=== PATIENT | male | born 1940 | race Caucasian/White ===

== ENCOUNTER → 2016-07-01 | Outpatient (CLI) | payer OTHER ==
[~2016-07-01] MED LIST: AGG PO; ATOR-24 PO; CEPH500C2 PO; CHN/1 PO; LOSA1TAB38 PO; MENT4GEL TOP; METF-384 PO
[2016-07-01 15:06] LABS: BASO % 0.3 %; BASO ABS # 0.02 K/uL (0-0.2); COMPLETE YES; HEMATOCRIT 49.4 % (42-52); IG% 0.3 %; LYMPH % 30.1 %; LYMPH ABS # 2.29 K/uL (1.2-3.4); MEAN CELL VOLUME 97.8 fL (80-100); MEAN CORPUSCULAR HEMOGLOBIN 33.3 pg (25-34); MEAN PLATELET VOLUME 10.9 fL (7.4-10.4); MONO % 9.6 %; NEUT % 56.7 %; PLATELET COUNT 173 K/uL (130-400); RED BLOOD COUNT 5.05 M/uL (4.7-6.1); WHITE BLOOD COUNT 7.61 K/uL (4.8-10.8)
[2016-07-01 16:23] LABS: ALT/SGPT 26 U/L (12-78); AST/SGOT 14 U/L (15-37); BLOOD UREA NITROGEN 24 mg/dl (7-18); BUN/CREATININE RATIO 14.4 (10-20); CALCIUM 9.3 mg/dl (8.5-10.1); CARBON DIOXIDE 27 mmol/L (21-32); CHLORIDE 109 mmol/L (98-107); GLUCOSE 88 mg/dl (70-99); POTASSIUM 4.2 mmol/L (3.5-5.1); SODIUM 141 mmol/L (136-145)
[2016-07-01 16:25] LABS: ALKALINE PHOSPHATASE 155 U/L (45-117)
[2016-07-02 06:25] LABS: ESTIMATED AVERAGE GLUCOSE 137 mg/dl; HA1C FLAG Normal (Normal)
== END | disposition home or self-care (01) ==
LOC: C.LAB 12:50
PROVIDERS: ATTEND Nurse Practitioner Family
DX: E78.00 Pure hypercholesterolemia, unspecified (principal); I10 Essential (primary) hypertension; E11.51 Type 2 diabetes mellitus with diabetic peripheral angiopathy without gangrene; E11.49 Type 2 diabetes mellitus with other diabetic neurological complication; E55.9 Vitamin D deficiency, unspecified; E11.621 Type 2 diabetes mellitus with foot ulcer

== ENCOUNTER → 2016-09-20 | Outpatient (CLI) | payer OTHER ==
[~2016-09-20] MED LIST changes: -CHN/1 PO; +GADAVIST IV PRN
--- NOTE | 2016-09-20 14:46 | DIAGNOSTIC IMAGING REPORT ---
RIGHT LOWER EXT NONJOINT COMBO HISTORY:75 yearsMaleWITH CONTRAST, NON-HEALING WOUND of the right foot without known injury. History of diabetes. COMPARISON: Right foot radiographs 02/17/2011 TECHNIQUE: Multiplanar multisequence MRI of the right foot was obtained both with and without the use of 11 mL Gadavist IV contrast. FINDINGS: There is a soft tissue ulcer along the plantar aspect of the foot centered at the first metatarsal head measuring up to 3.1 x 2.6 cm in AP and transverse dimension and extends approximately 5 mm in depth. No drainable fluid collection is seen at this time. There is severe joint space narrowing with marginal spurring of the first metatarsal phalangeal joint. There is mild soft tissue edema along the plantar aspect of the first metatarsal head adjacent to the ulcer site. There are subtle areas of focally decreased T1 signal along the plantar aspect of the first metatarsal head are nicely seen on image 7 of the sagittal T1 series which demonstrates minimal associated enhancement and bone marrow edema. Additionally, there is a 7 mm area of decreased T1 signal and increased T2 signal with enhancement involving the base of the first proximal phalanx as seen on image 6 of the sagittal T1 series suggesting degenerative related subcortical cyst. No additional focal bone marrow edema is identified. Degenerative changes are seen throughout the interphalangeal and metatarsophalangeal joints. Midfoot alignment is anatomic. There is diffuse atrophy of the intrinsic musculature of the foot. Imaged flexor and extensor tendons appear intact. IMPRESSION: 1. Large soft tissue ulcer along the plantar aspect of the foot centered at the first metatarsal head measures up to 3.1 cm. No drainable fluid collection is seen at this time. 2. Only minimal focally decreased T1 signal along the plantar aspect of the first metatarsal head with corresponding increased STIR signal and enhancement suggests degenerative changes with reactive sequela, however very early developing acute osteomyelitis may have a similar appearance. 3. Degenerative related subcortical cystic changes of the first metatarsal phalangeal joint are also noted with severe joint space narrowing and marginal spurring. 4. Extensive intrinsic muscular atrophy throughout the foot is likely sequela of denervation changes from long-standing diabetes mellitus. The above report was generated using voice recognition software. It may contain grammatical, syntax or spelling errors. Electronically signed by: Tawanda Mosqueda M.D. 09/20/2016 2:45 PM Dictated Date/Time: 09/20/2016 2:34 PM
== END | disposition home or self-care (01) ==
LOC: C.MRI 12:40
PROVIDERS: ATTEND Emergency Medicine
DX: L97.529 Non-pressure chronic ulcer of other part of left foot with unspecified severity (principal); M77.9 Enthesopathy, unspecified; M62.571 Muscle wasting and atrophy, not elsewhere classified, right ankle and foot; M85.871 Other specified disorders of bone density and structure, right ankle and foot

== ENCOUNTER → 2016-12-16 | Outpatient (CLI) | payer OTHER ==
[~2016-12-16] MED LIST changes: -CEPH500C2 PO; -GADAVIST IV PRN
[2016-12-16 15:06] LABS: BASO % 0.5 %; BASO ABS # 0.04 K/uL (0-0.2); COMPLETE YES; EOS % 4.8 %; HEMATOCRIT 50.2 % (42-52); IG% 0.3 %; LYMPH % 27.5 %; LYMPH ABS # 2.01 K/uL (1.2-3.4); MEAN CELL VOLUME 95.3 fL (80-100); MEAN CORPUSCULAR HGB CONC 35.7 g/dl (32-36); MONO % 7.7 %; NEUT % 59.2 %; PLATELET COUNT 208 K/uL (130-400); RED BLOOD COUNT 5.27 M/uL (4.7-6.1)
[2016-12-16 15:23] LABS: ESTIMATED AVERAGE GLUCOSE 154 mg/dl; HA1C FLAG Normal (Normal)
[2016-12-16 16:05] LABS: ALT/SGPT 22 U/L (12-78); AST/SGOT 14 U/L (15-37); BLOOD UREA NITROGEN 17 mg/dl (7-18); BUN/CREATININE RATIO 15.2 (10-20); CALCIUM 9.5 mg/dl (8.5-10.1); CARBON DIOXIDE 24 mmol/L (21-32); CHLORIDE 103 mmol/L (98-107); GLUCOSE 120 mg/dl (70-99); POTASSIUM 4.3 mmol/L (3.5-5.1); SODIUM 134 mmol/L (136-145)
[2016-12-16 16:13] LABS: ALB/GLOB RATIO 0.9 (0.9-2); ALKALINE PHOSPHATASE 174 U/L (45-117); CHOLESTEROL 125 mg/dl (0-200); CHOLESTEROL/HDL RATIO 4.6; HDL CHOLESTEROL 27 mg/dl; LDL CHOLESTEROL CALCULATED 25 mg/dl; PHOSPHORUS 2.5 mg/dl (2.5-4.9); TRIGLYCERIDES 367 mg/dl (0-150); VERY LOW DENSITY LIPOPROT CALC 73 mg/dl
== END | disposition home or self-care (01) ==
LOC: C.LAB1850 13:35
PROVIDERS: ATTEND Nurse Practitioner Family
DX: E78.00 Pure hypercholesterolemia, unspecified (principal); I10 Essential (primary) hypertension; E88.81 Metabolic syndrome and other insulin resistance; E11.51 Type 2 diabetes mellitus with diabetic peripheral angiopathy without gangrene; E11.49 Type 2 diabetes mellitus with other diabetic neurological complication

== ENCOUNTER → 2017-01-18 | Outpatient (CLI) | payer OTHER | END | disposition home or self-care (01) | LOC: C.PATHSPEC 17:41 | PROVIDERS: ATTEND Dermatology | DX: B07.9 Viral wart, unspecified (principal) ==

== ENCOUNTER → 2017-05-07 | Outpatient (CLI) | payer OTHER ==
[2017-05-07 13:40] LABS: HEMOGLOBIN A1C 6.9 % (4.5-5.6)
[2017-05-07 13:45] LABS: BLOOD UREA NITROGEN 16 mg/dl (7-18); CALCIUM 9.5 mg/dl (8.5-10.1); CARBON DIOXIDE 27 mmol/L (21-32); CREATININE 1.12 mg/dl (0.60-1.40); GLUCOSE 91 mg/dl (70-99); POTASSIUM 4.3 mmol/L (3.5-5.1); SODIUM 134 mmol/L (136-145)
== END | disposition home or self-care (01) ==
LOC: C.LAB 11:54
PROVIDERS: ATTEND Nurse Practitioner Family
DX: E11.51 Type 2 diabetes mellitus with diabetic peripheral angiopathy without gangrene (principal); E11.49 Type 2 diabetes mellitus with other diabetic neurological complication

== ENCOUNTER 2018-03-27 10:18 | Inpatient (IN) ==
--- NOTE | 2018-03-22 10:53 | Anesthesiology Consultation ---
Date of Service March 22, 2018 Assessment & Plan Chart Review Chart Review: Acceptable Risk for Surgery and Patient NOT seen in Pre Admission Testing Consults Requested none History Surgery Operation Date: 03/27/18 12:00 Proposed Procedures p Right Robotic Video-Assisted Thoracoscopy with Right Upper Lobe Wedge Resection, Possible Right Lobectomy with Mediastinal Lymphadenectomy - Junaid Mathur MD, FACS Height/Weight Height: 1.93 m Weight: 100.698 kg Allergies Allergy/AdvReac Type Severity Reaction Status Date / Time No Known Allergies Allergy Verified 03/16/18 07:56 Medications Home Medications Medication Instructions Recorded Confirmed Last Taken aspirin-dipyridamole [Aggrenox] 1 cap PO QAM 02/23/18 03/16/18 02/23/18 10:00 atorvastatin 40 mg PO QAM 02/23/18 03/16/18 02/23/18 10:00 losartan 100 mg PO QAM 02/23/18 03/16/18 02/23/18 10:00 metformin 1,000 mg PO BIDM 02/23/18 03/16/18 02/23/18 17:30 Past Medical History Medical History AAA (abdominal aortic aneurysm) COPD (chronic obstructive pulmonary disease) CVA (cerebral vascular accident) balance is unsteady - uses assitive device Essential tremor H/O deep venous thrombosis History of abdominal aortic aneurysm (AAA) History of skin cancer face Lung tumor right upper lobe Non-insulin dependent type 2 diabetes mellitus Obesity Peripheral neuropathy Peripheral vascular disease Past Surgical History Surgical History History of gastric surgery perforated ulcer History of repair of aneurysm of abdominal aorta using endovascular stent graft History of surgery EBUS 02/2018: mac 4 gr 3, ETT #8.5 Hx of appendectomy Hx of tonsillectomy Hx of tooth extraction Status post amputation of right great toe Past Anesthesia History No Hx of Anesthesia Complications History of PONV No Motion Sickness Screening History of Motion Sickness: No Social History Smoking Status: Current every day smoker tobacco type: cigarettes Smoking cigarettes per day: 5 Do You Dip or Chew Tobacco: No Hx Alcohol Use: No Hx Substance Use: No Exercise / Class Metabolic Activity II 4-5 Yardwork/Stairs/Walk up hill Testing Electrocardiogram Date: 02/20/18 Findings: + NSR @ (68bpm with frequent PACs) No significant change was found when compared with ECG of 02/17/2011 Chest X-Ray Date: 02/24/18 FINDINGS: Mild diffuse interstitial thickening which is likely chronic. This remains unchanged. The heart is stable in size. No change in the 2.3 cm irregular right upper lobe pulmonary lesion. No new focal lung consolidations. No pneumothorax. IMPRESSION: 1. No pneumothorax. 2. No change in the 2.3 cm irregular right upper lobe lesion. Echocardiogram Date: 06/25/14 EF: 65% LV Function: normal RWMA: + none Other Findings: + LVH (Mild) and + diastolic dysfunction Valvular Disease: + no significant valvular disease Laboratory Results Laboratory Tests 01/11/18 03/21/18 03/21/18 11:17 13:46 13:46 WBC 4.44 L Hgb 13.6 L Hct 41.4 L Plt Count 175 Sodium 139 Potassium 4.1 Chloride 110 H Carbon Dioxide 24 BUN 12 Creatinine 1.23 Glucose 122 H Hemoglobin A1c 6.1 H
[~2018-03-27 10:18] MED LIST changes: -AGG PO; -ATOR-24 PO; +DEXAMETHASONE SOD INJ 4 MG/ML VIAL ONE; +GLYCOPYRROLATE 0.2 MG/ML VIAL ONE; +LIDOCAINE HCL 2% 2 ML VIAL/AMP(20MG/ML) INFIL ONE; -LOSA1TAB38 PO; +LR 15ML/HR IV SCH; -MENT4GEL TOP; -METF-384 PO; +MIDAZOLAM HCL 1 MG/ML 2ML VIAL ONE; +NEOSTIGMINE METHYLSULFATE 5 MG/5 ML SYR ONE; +ONDANSETRON INJ 2 MG/ML 2 ML VIAL ONE; +PROPOFOL IV EMULSION 10 MG/ML 20 ML VIAL IV ONE; +fentaNYL citrate 100 MCG/2 ML VIAL ONE
[2018-03-27] MEDS ORDERED: SODIUM CHLORIDE 0.9% PF 50 ML VIAL ONE (10:19)
[2018-03-27] MEDS ORDERED: BUPIVACAINE 0.5 % 5 MG/1 ML MPF 30ML VIAL ONE (10:19)
[2018-03-27] MEDS ORDERED: BUPIVACAINE LIPOSOME 1.3% 266 MG/20 ML VIAL INFIL ONE (10:19)
[2018-03-27] MEDS ORDERED: ATROPINE SULFATE 0.1 MG/ML 10ML SYR IV PRN (10:58)
[2018-03-27] MEDS ORDERED: ePHEDrine sulfate 50 MG/ML AMP IV PRN (10:58)
[2018-03-27] MEDS ORDERED: ONDANSETRON INJ 2 MG/ML 2 ML VIAL IV PRN ×2 (10:58→18:04)
[2018-03-27] MEDS ORDERED: HYDROmorphone INJ 1 MG/ML SYRINGE IV PRN (10:58)
[2018-03-27] MEDS ORDERED: fentaNYL citrate 100 MCG/2 ML VIAL IV PRN (10:58)
[2018-03-27] MEDS ORDERED: fentaNYL citrate 100 MCG/2 ML VIAL ONE ×2 (11:31→11:32)
[2018-03-27] MEDS ORDERED: MIDAZOLAM HCL 1 MG/ML 2ML VIAL ONE (11:31)
--- NOTE | 2018-03-27 11:49 | History & Physical Bridge Note ---
Date of Service March 27, 2018 History & Physical Bridge Note I have examined the patient, reviewed the History & Physical and in the interval since the performance of the History & Physical I have noted the following changes of clinical significance: no changes noted
[2018-03-27] MEDS ORDERED: SURGICEL ABSORB HEMOSTAT 2IN X 14IN TOP ONE (13:38)
[2018-03-27] MEDS ORDERED: CEFAZOLIN 2000MG 2,000 MG/15 ML SYR IV SCH (13:45)
[2018-03-27] MEDS ORDERED: ROCURONIUM BROMIDE 10 MG/ML 5 ML VIAL ONE (14:11)
[2018-03-27] MEDS ORDERED: TISSEEL FIBRIN SEALANT 10ML TOP ONE (14:34)
[2018-03-27] MEDS ORDERED: PHENYLEPHRINE 100MCG/ML 5ML SYR ONE (16:38)
[2018-03-27] MEDS ORDERED: ePHEDrine sulfate 50 MG/ML SYR ONE (16:38)
--- NOTE | 2018-03-27 16:47 | Post Operative Brief Note ---
Immediate Post Op Note v1 Date of Surgery March 27, 2018 Pre & Post Diagnosis Operation Date: 03/27/18 12:00 Pre-Op Diagnosis: Hypermetabolic lung mass right upper lobe Post-Op Diagnosis: Squamous cell carcinoma right upper lobe Procedure Operation Date: 03/27/18 12:00 Actual Procedures p Right Robotic Video-Assisted Thoracoscopy with Right Upper Lobe Wedge Resection; Right upper lobectomy; with Mediastinal Lymphadenectomy(Right) - Junaid Mathur MD, FACS Surgeon Junaid Mathur MD, FACS Fretted Instruments Inspector Christopher BOB Estimated Blood Loss 75 Findings Consistent with Post-Op Diagnosis Drains Chest Tube (24 Fr. Thal) and Sandoval Catheter (12 Fr. Sandoval catheter)
[2018-03-27] MEDS ORDERED: METOCLOPRAMIDE HCL INJ 5 MG/ML 2 ML VIAL IV ONE (17:15)
--- NOTE | 2018-03-27 17:21 | XRay Report ---
XR chest 1V portable CLINICAL HISTORY: Status post right upper lobectomy COMPARISON STUDY: 02/24/2018 FINDINGS: The heart is borderline enlarged. Postsurgical changes are present on the right. There is r ight-sided volume loss consistent with history of a lumpectomy. There is tenting right hemidiaphragm. There is a right-sided chest tube. There is no significant pneumothorax. There is right-sided subcut aneous emphysema.[ IMPRESSION: 1. Interval right upper lobectomy 2. Right-sided chest tube. No evidence of pneumothorax. Electronically signed by: Ben Stein M.D. 03/27/2018 5:20 PM
[2018-03-27 17:22] LABS: iSTAT Creatinine 0.8 mg/dl (0.6-1.3); iSTAT Hemoglobin 13.3 g/dl (14.0-18.0); iSTAT Ionized Calcium 1.2 mmol/l (1.12-1.32); iSTAT Potassium 4.5 mEq/L (3.3-5.0)
--- NOTE | 2018-03-27 17:39 | Anesthesiology Progress Note ---
Date of Service March 27, 2018 Anesthesia Post Procedure Vital Signs Vital Signs: Temp Pulse Pulse Resp BP BP Pulse Ox 03/27/18 17:25 55 L 16 132/58 L 100 03/27/18 17:15 62 19 150/82 H 99 03/27/18 17:08 35.5 C L 81 19 156/80 H 98 03/27/18 11:05 36 C L 54 L 20 140/72 134/92 98 Notes Mental Status: alert / awake / arousable and participated in evaluation Nausea / Vomiting: adequately controlled Pain: adequately controlled Airway Patency, RR, SpO2: stable & adequate BP & HR: stable & adequate Hydration State: stable & adequate Anesthetic Complications: no major complications apparent and Pt Satisfied with anesthetic care
[2018-03-27] MEDS ORDERED: MoRPHine SULFATE 4 MG/ML 1 ML CARP\\VIAL IV PRN (18:04)
[2018-03-27] MEDS ORDERED: PNEUMOCOCCAL ADMINISTRATION CHARGE ONE (19:00)
[2018-03-27] MEDS ORDERED: PNEUMOCOCCAL POLYSACCHARIDES 25 MCG/0.5 ML VIAL/SYR IM ONE (19:00)
[2018-03-27] MEDS ORDERED: GLUCAGON FOR INJ 1 MG VIAL IM PRN (19:01)
[2018-03-27] MEDS ORDERED: CARBOHYDRATES FOR HYPOGLYCEMIA PO PRN (19:01)
[2018-03-27] MEDS ORDERED: GLUCOSE 40% GEL 15 GM TUBE PO PRN (19:01)
[2018-03-27] MEDS ORDERED: DEXTROSE 50% 50 ML SYRINGE IV PRN (19:01)
[2018-03-27] MEDS ORDERED: GLUCOSE 10 TABS/TUBE PO PRN (19:01)
--- NOTE | 2018-03-27 19:40 | Operative Report ---
DATE OF OPERATION: 03/27/2018 PREOPERATIVE DIAGNOSIS: Suspicious mass right upper lobe. POSTOPERATIVE DIAGNOSIS: Squamous cell carcinoma right upper lobe. PROCEDURE: 1. Robot-assisted thoracoscopic right upper lobe wedge resection. 2. Robot-assisted thoracoscopic right upper lobectomy. 3 Robot-assisted thoracoscopic mediastinal lymphadenectomy. SURGEON: Junaid Mathur MD OBIEE CONSULTANT: LISBETH Duncan (Mr. Nicholson was present for the entire case with the patient at bedside while I was at the console). ANESTHESIA: General anesthesia, endotracheal intubation. INDICATIONS FOR PROCEDURE AND FINDINGS: Huber Romero is a 77-year-old male who has a long history of cigarette smoking and contract chronic obstructive pulmonary disease who presented with a right upper lobe mass. We worked this mass including a PET scan and pulmonary function studies, and it appeared that he would indeed be an operative candidate. I had a long discussion with the patient and his brother on 2 occasions. Mr. Romero decided to proceed with surgery. On 03/27/2018, the patient underwent an uncomplicated right upper lobectomy. I did a wedge resection x2. This showed that the patient had a squamous cell carcinoma. I then did an uncomplicated right upper lobectomy. The bronchial margins were free of disease on frozen section. I also performed a lymphadenectomy. He tolerated it well and was extubated in the room. DESCRIPTION OF PROCEDURE: The patient was brought into the operating room and laid in supine position. General anesthesia induced. Endotracheal intubation performed with double lumen tube. After proper monitoring lines had been placed, the patient was placed in the left lateral decubitus position. Right chest prepped and draped in usual sterile fashion after positioning. After appropriate antibiotics had been given, a timeout had been called and a 12-mm port was placed in about the eighth interspace just anterior to mid axillary line. It could be seen that there were no adhesions. A 5-mm scope was placed through this port and we put other ports in. An 8-mm port was placed just medial to the costal margin in about the seventh interspace and then an 8 mm port was placed between these 2 ports, the camera port and this port. A 5-mm port was placed posteriorly in about the ninth interspace and then an 8-mm port was placed 10 cm from this in about the eighth interspace. A 15-mm assistance port was placed just above the diaphragm between the camera port and the anterior most port. There were a few adhesions between the middle lobe and upper lobe and the mediastinal fat was taken down. I then palpated what I felt to be the mass with the scope and wedged it out. Dr. Richard Costa evaluated this and did not really see evidence of a cancer. I then palpated and felt a larger mass, which was a little deeper than I expected. We were to try to staple this and it was very difficult. We had to get under and removed a pretty good portion of the posterior upper lobe. This came back as a squamous cell carcinoma. While waiting for this to come back, we did a lymph node dissection. We took down the inferior pulmonary ligament, really did not see a level IX node; however, I dissected the level VIII and level VII, level X, multiple level XI, level II, and level IV. When the frozen section came back, we went ahead and proceeded with the surgery. He had fairly complete fissures. I dissected out the bronchus, the mainstem bronchus on the right and carried this dissection down into the takeoff of the upper lobe bronchus, took out the level XI node out. I then went superior and dissected out the artery and the vein and then came around the anterior mediastinal pleura was opened and I identified the middle lobe vein and the vein to the upper lobe. I then developed much of the 2 fissures. Finally, I completed the upper lobe fissure with the stapler after dissecting out, identifying the artery and the intralobar fissure and this opened up nicely so, I was able to take the posterior ascending artery posteriorly and then the branch to the superior pulmonary vein, the branch draining of the vein from the pulmonary vein. This opened up things nicely. Using the cautery on the robotic dissector, we were able to free up the artery all the way and identified the apical anterior branch and a more distal branches were divided with Endo-HUSAM staplers without difficulty. I had completed the posterior fissure after dividing the posterior ascending arterial branch. Then all it was left was the bronchus, which was divided with an Endo-HUSAM stapler. We assessed for an air leak and there was 1 small area on the apical aspect of the right lower lobe that I oversewed using 4-0 Prolene. We inflated the lung and really did not see much in the way of a leak. The bronchus was laid nicely. We did spray Tisseel over all the vessel, vascular staple lines, as well as where we dissected out the lymph nodes. A 24-Icelandic chest tube was directed towards the apex and brought up to camera port and sutured in place with heavy silk suture. The larger ports were closed with 0 Vicryl to close the muscle layers. A 4-0 Vicryl was used in running subcuticular fashion to approximate the wound edges. The chest tube had been sutured in with heavy silk suture. Really did not see much of an air leak at conclusion of the case. Blood loss was negligible. He tolerated it well, was transferred back to the postanesthesia care unit in stable condition. I attest to the content of the Intraoperative Record and any orders documented therein. Any exception s are noted below.
[2018-03-27] MEDS: ACETAMINOPHEN 1,000 MG/100 ML VIAL IV SCH (21:20)
[2018-03-27] MEDS: DOCUSATE SODIUM 100 MG CAP PO SCH ×2 (21:21→21:32)
[2018-03-27] MEDS: INSULIN ASPART 100 UNITS/ML 3 ML PEN SC SCH (21:40)
[2018-03-27] MEDS: SODIUM CHLORIDE 0.9% 1000ML 1,000 ML IV SCH (23:42)
[2018-03-28] MEDS: METOCLOPRAMIDE HCL INJ 5 MG/ML 2 ML VIAL IV SCH ×2 (00:51→07:57)
[2018-03-28] MEDS: ACETAMINOPHEN 1,000 MG/100 ML VIAL IV SCH (03:41)
[2018-03-28 06:24] LABS: Basophils # (auto) 0.01 K/uL (0-0.2); Basophils % (auto) 0.2 %; Eosinophils # (auto) 0.18 K/uL (0-0.5); Hematocrit (blood only) 40.4 % (42-52); Immature Granulocytes # (auto) 0.02 K/uL (0.00-0.02); Immature Granulocytes % (auto) 0.3 %; Lymphocytes # (auto) 1.14 K/uL (1.2-3.4); Lymphocytes % (auto) 19.3 %; Mean Corpuscular Volume 105.8 fL (80-100); Mean Platelet Volume 10.5 fL (7.4-10.4); Monocytes # (auto) 0.51 K/uL (0.11-0.59); Monocytes % (auto) 8.6 %; Neutrophils # (auto) 4.06 K/uL (1.4-6.5); Neutrophils % (auto) 68.6 %; Platelet Count 157 K/uL (130-400); RDW Coefficient of Variation 15.6 % (11.5-14.5); RDW Standard Deviation 61.2 fL (36.4-46.3); Red Blood Count 3.82 M/uL (4.7-6.1); White Blood Count 5.92 K/uL (4.8-10.8)
[2018-03-28 06:33] LABS: Mean Corpuscular Hgb Conc 32.2 g/dL (32-36)
[2018-03-28 06:40] LABS: BUN Creatinine Ratio 10.3 (10-20); Calcium 8.3 mg/dl (8.5-10.1); Creatinine Clr Calc Pharmacy 68.7 ml/min; Est GFR (African American) 76.1; Est GFR (Non-African American) 65.7; Potassium 4.2 mmol/L (3.5-5.1)
[2018-03-28 06:50] LABS: INR 1.1 (0.9-1.1); Prothrombin Time 11.2 Seconds (9.0-12.0)
--- NOTE | 2018-03-28 07:01 | XRay Report ---
XR chest 1V portable HISTORY: 77 years-old Male RUL acute shortness of breath. History of prior right-sided pulmonary res ection. COMPARISON: Chest radiograph 03/27/2017 TECHNIQUE: Portable AP view of the chest FINDINGS: Stable positioning of the right-sided chest tube. Postoperative changes from prior right upper lobect braden redemonstrated. Minimal subcutaneous emphysema about the lower lateral aspect of the right chest wall. No definite right-sided pneumothorax. Persistent bibasilar opacities suggest atelectasis/scarri ng. Mild blunting of the costophrenic angles may reflect trace effusions. No overt pulmonary edema. H eart size appears unchanged. Degenerative changes of the shoulders and spine. IMPRESSION: 1. Postoperative changes from prior right upper lobectomy. 2. Stable positioning of the right-sided chest tube without pneumothorax identified. The above report was generated using voice recognition software. It may contain grammatical, syntax o r spelling errors. Electronically signed by: Tawanda Mosqueda M.D. 03/28/2018 7:00 AM
[2018-03-28] MEDS: INSULIN ASPART 100 UNITS/ML 3 ML PEN SC SCH ×4 (07:57→20:56)
[2018-03-28] MEDS: ENOXAPARIN INJ 40 MG/0.4 ML SYR SQ SCH ×2 (07:57→08:26)
[2018-03-28] MEDS: DOCUSATE SODIUM 100 MG CAP PO SCH ×2 (07:57→20:17)
[2018-03-28] MEDS: SODIUM CHLORIDE 0.9% 1000ML 1,000 ML IV SCH (08:01)
--- NOTE | 2018-03-28 08:16 | Anesthesiology Progress Note ---
Date of Service March 28, 2018 Anesthesia Post Procedure Vital Signs Vital Signs: Temp Pulse Pulse Resp BP BP Pulse Ox 03/28/18 07:16 36.3 C L 70 14 83/39 L 95 03/28/18 06:00 36.3 C L 71 18 98/63 L 92 03/28/18 04:00 37.3 C 80 16 93/54 L 91 03/28/18 02:04 36.8 C 68 16 97/50 L 95 03/27/18 23:55 36.9 C 63 16 101/54 L 96 03/27/18 21:56 36.7 C 64 18 103/63 98 03/27/18 21:00 36.7 C 84 18 99/61 L 95 03/27/18 20:00 36.9 C 88 18 110/63 92 03/27/18 19:28 36.5 C 03/27/18 19:00 76 18 103/64 97 03/27/18 18:30 36.1 C L 03/27/18 18:28 68 18 94/59 L 93 03/27/18 18:00 48 L 15 95/58 L 100 03/27/18 17:45 36.0 C L 55 L 15 104/54 L 98 03/27/18 17:35 68 18 113/54 L 98 03/27/18 17:25 55 L 16 132/58 L 100 03/27/18 17:15 62 19 150/82 H 99 03/27/18 17:08 35.5 C L 81 19 156/80 H 98 03/27/18 11:05 36 C L 54 L 20 140/72 134/92 98 Pain Intensity Right Chest: Pain Intensity: 1 Notes Mental Status: alert / awake / arousable and participated in evaluation Patient Amnestic to Procedure: Yes Nausea / Vomiting: adequately controlled Pain: adequately controlled Airway Patency, RR, SpO2: stable & adequate BP & HR: stable & adequate Hydration State: stable & adequate Anesthetic Complications: no major complications apparent Notes: patient disclosed he was taking his home medications inpt then later said they were in the safe with security. His RN was notified of this to make sure he did not have any of his home medications in his room for safety. She said she would make sure of it.
[2018-03-28] MEDS ORDERED: LOSARTAN POTASSIUM 50 MG TAB PO SCH (09:00)
[2018-03-28] MEDS ORDERED: ATORVASTATIN 40 MG TAB PO SCH (09:00)
[2018-03-28] MEDS ORDERED: DIPYRIDAMOLE/ASPIRIN CAP PO SCH (09:00)
[2018-03-28] MEDS: ACETAMINOPHEN 325 MG TAB PO SCH ×3 (10:25→21:13)
[2018-03-28] MEDS: OXYCODONE HCL IR 5 MG TAB (IMMEDIATE RELEASE) PO PRN (14:22)
--- NOTE | 2018-03-28 17:53 | Progress Note ---
DATE: 03/28/2018 Mr. Romero was seen today, 1 day status post robot-assisted thoracoscopic right upper lobectomy. Mr. Romero looks quite good. He has a tiny air leak. He is on room air. He is cantankerous. He is eating though. He is ambulating even though it has been difficult. He has refused his sequential compression devices. He finally agreed on Lovenox after we spoke to him. He wants to take his own home medications. I had a long talk with the patient, his brother, and his [id number]. His x-ray looks great. He has drained very little from his chest tube. His labs all looked quite good. The hemoglobin is stable at 13. He had a white count of 5920. BUN and creatinine of 11 and 1.07. His blood sugars have also been very well controlled. ASSESSMENT AND PLAN: Postoperative day #1, status post robot-assisted thoracoscopic right upper lobectomy with mediastinal lymphadenectomy for a squamous cell carcinoma. His air leak is intermittent and tiny. He will probably have to be in the hospital at least another 48 hours. I had a long talk with the patient and his family.
[2018-03-29] MEDS: OXYCODONE HCL IR 5 MG TAB (IMMEDIATE RELEASE) PO PRN (00:29)
[2018-03-29] MEDS: ACETAMINOPHEN 325 MG TAB PO SCH ×4 (04:04→22:36)
--- NOTE | 2018-03-29 07:14 | XRay Report ---
XR chest 1V portable CLINICAL HISTORY: Postop right upper lobe resection COMPARISON STUDY: 03/28/2018 FINDINGS: There are postsurgical changes of a right upper lobectomy. There is a right-sided chest tub e present. There is a right apical pneumothorax with 2 cm pleural separation. There is subcutaneous e mphysema on the right. There are minor basilar atelectatic changes. There is no failure.[ IMPRESSION: Postsurgical changes. 2 cm right apical pneumothorax. Electronically signed by: Ben Stein M.D. 03/29/2018 7:13 AM
[2018-03-29] MEDS: INSULIN ASPART 100 UNITS/ML 3 ML PEN SC SCH ×4 (08:33→22:35)
[2018-03-29] MEDS: ENOXAPARIN INJ 40 MG/0.4 ML SYR SQ SCH (08:34)
[2018-03-29] MEDS: DOCUSATE SODIUM 100 MG CAP PO SCH ×2 (08:34→20:43)
[2018-03-29] MEDS: METFORMIN HCL 500 MG TAB PO SCH ×2 (09:58→17:25)
[2018-03-29] MEDS: DIPYRIDAMOLE PO SCH (09:58)
[2018-03-29] MEDS: ASPIRIN PO SCH (09:58)
[2018-03-29] MEDS: LOSARTAN 100 MG PO SCH (09:59)
[2018-03-29] MEDS: ATORVASTATIN 40 MG PO SCH (09:59)
--- NOTE | 2018-03-29 12:01 | Progress Note ---
DATE: 03/29/2018 Mr. Romero is now 2 days status post robot-assisted thoracoscopic right upper lobectomy for a lung cancer. He looks quite good actually. He has just about had resolution of his air leak. I elected to leave the chest tube in 1 more day. He is not draining very much. His oxygenation is very good on room air. He has been ambulating. He is cantankerous and a bit difficult to work with, but overall I think he has done very, very well.
[2018-03-30] MEDS: OXYCODONE HCL IR 5 MG TAB (IMMEDIATE RELEASE) PO PRN (00:17)
[2018-03-30] MEDS: ACETAMINOPHEN 325 MG TAB PO SCH ×4 (04:30→20:59)
--- NOTE | 2018-03-30 07:27 | XRay Report ---
XR chest 1V portable CLINICAL HISTORY: 77 years-old Male presenting with lung resection . TECHNIQUE: Portable upright AP view of the chest was obtained. COMPARISON: 03/29/2018 at 6:50 AM. FINDINGS: The large bore right pleural drain remains positioned at the right apex. Associated soft tissue emphy sema along the inferior right lateral chest wall. Cardiac silhouette moderately enlarged. Low lung vo lumes on the right. Increased basilar opacity on the right and increased small right pleural effusion . Stable appearance of the small right pneumothorax at the right apex. Left lung and pleural space cl ear. Degenerative changes of the thoracic spine. IMPRESSION: 1. Postsurgical changes of the right hemithorax. Unchanged small right apical pneumothorax. 2. Increasing right basilar opacity, likely atelectasis. 3. Increasing small right pleural effusion. Electronically signed by: Richard Pérez M.D. 03/30/2018 7:25 AM
[2018-03-30] MEDS: METFORMIN HCL 500 MG TAB PO SCH ×3 (09:43→20:58)
[2018-03-30] MEDS: DOCUSATE SODIUM 100 MG CAP PO SCH ×2 (09:44→20:58)
[2018-03-30] MEDS: ATORVASTATIN 40 MG PO SCH (09:44)
[2018-03-30] MEDS: ASPIRIN PO SCH (09:44)
[2018-03-30] MEDS: DIPYRIDAMOLE PO SCH (09:44)
[2018-03-30] MEDS: ENOXAPARIN INJ 40 MG/0.4 ML SYR SQ SCH (09:45)
[2018-03-30] MEDS: LOSARTAN 100 MG PO SCH (09:45)
[2018-03-30] MEDS: INSULIN ASPART 100 UNITS/ML 3 ML PEN SC SCH ×4 (09:46→20:59)
--- NOTE | 2018-03-30 14:21 | XRay Report ---
SINGLE VIEW CHEST CLINICAL HISTORY: Status post chest tube removal. FINDINGS: 2 AP, portable, upright chest radiographs are compared to study performed earlier the same day 03/30/2018 and correlated with chest CT dated 01/12/2018. The examination is degraded by portable t echnique and patient rotation. The cardiomediastinal silhouette is largely obscured. Emphysema and c hronic interstitial thickening are again noted. The right-sided chest tube has been removed. There ar e postoperative changes and volume loss consistent with a history of right upper lobe resection. Ther e is compensatory hyperinflation of the left lung. Pleural fluid and consolidative change is seen at the right lung base. There is likely a trace residual right apical pneumothorax. No left-sided Pneumo thorax is seen. The skeletal structures are osteopenic. The bony thorax is grossly intact. Degenerati ve change is noted in the shoulders and thoracic spine. Subcutaneous emphysema is noted along the rig ht chest wall. IMPRESSION: 1. The right-sided chest tube has been removed. There is likely a trace residual right apical pneumot horax. 2. Emphysema and postoperative change from right-sided pulmonary resection are again noted. 3. Pleural fluid and consolidation at the right lung base is similar to previous. Electronically signed by: Elan Pratt M.D. 03/30/2018 2:19 PM
--- NOTE | 2018-03-30 15:40 | Progress Note ---
DATE: 03/30/2018 Mr. Romero was seen today on 03/30/2018. He is now 3 days status post a robot-assisted thoracoscopic right upper lobectomy, mediastinal lymphadenectomy for stage I squamous cell carcinoma. Mr. Romero had his chest tube removed today. This should help his pain; however, he is not coughing, though he needs to. He has got some atelectasis with some consolidation on the right. I am going to put him on antibiotics. He is not really coughing much up, although he does sound like he has some sputum, he states "I cannot get it up." Also put him on some Mucinex. He is walking more now. He is coughing better. My hope is that his x-ray tomorrow looks better. I am going to keep him n.p.o. after midnight, and if his x-ray is not better in the morning, I am going to do a fiberoptic bronchoscopy on him.
[2018-03-30] MEDS: AMOXICILLIN/CLAVULANATE 875 MG TAB PO SCH ×2 (15:55→20:56)
[2018-03-30] MEDS: guaiFENesin 600 MG TABCR PO SCH (20:58)
[2018-03-31] MEDS: ACETAMINOPHEN 325 MG TAB PO SCH ×2 (04:10→09:32)
[2018-03-31] MEDS ORDERED: Nursing to Pharmacy Communication ONE (06:46)
[2018-03-31] MEDS: INSULIN ASPART 100 UNITS/ML 3 ML PEN SC SCH ×2 (06:55→12:03)
--- NOTE | 2018-03-31 07:47 | XRay Report ---
XR chest 1V portable CLINICAL HISTORY: atelectasis COMPARISON STUDY: Chest radiograph March 30, 2018 at 1:41 PM. FINDINGS: Subcutaneous venous gas within the right lower chest wall is noted. A small right pleural e ffusion is noted. There is no significant pneumothorax. Right hemithorax volume loss with right mid a nd lower lung airspace opacity persists. This is similar to prior exam. Left lung is clear. IMPRESSION: 1. Persistent right mid and lower lung airspace opacity with volume loss which favors atelectasis. 2. Small right pleural effusion. No pneumothorax identified. Electronically signed by: Dmitri Kline M.D. 03/31/2018 7:45 AM
--- NOTE | 2018-03-31 08:27 | Pre Anesthesia Assessment ---
Date of Service March 31, 2018 Pre Sedation Assessment Vital Signs Temp Pulse Pulse Resp BP BP Pulse Ox 03/31/18 07:28 36.8 C 68 17 114/73 93 03/30/18 23:08 36.4 C L 87 18 102/68 92 03/30/18 15:07 36.3 C L 80 22 124/76 93 Pre-Sedation Airway Assessment Smoking Status: Current every day smoker Hx Sleep Apnea: No Short, Thick Neck: No Thyromental Distance: > or= 3.5 Finger Breadths Mallampati Class: III ASA: ASA2 NPO Status Date of Last Intake of Fluids: 03/31/18 Time of Last Intake of Fluids: 05:00 Last Oral Intake of Fluids Comment: sips Date of Last Intake of Solid Food: 03/30/18 Notes The planned sedation has been discussed with the patient. Informed Consent was obtained. I have identified the patient, determined the appropriateness of sedation and have assessed the patient immediately prior to the procedure. All medicine(s) and interventions are by my order.
--- NOTE | 2018-03-31 08:29 | History & Physical Bridge Note ---
Date of Service March 31, 2018 History & Physical Bridge Note I have examined the patient, reviewed the History & Physical and in the interval since the performance of the History & Physical I have noted the following changes of clinical significance: no changes noted
[2018-03-31] MEDS: ASPIRIN PO SCH (09:01)
[2018-03-31] MEDS: METFORMIN HCL 500 MG TAB PO SCH (09:01)
[2018-03-31] MEDS: DIPYRIDAMOLE PO SCH (09:01)
[2018-03-31] MEDS: guaiFENesin 600 MG TABCR PO SCH (09:01)
[2018-03-31] MEDS: LOSARTAN 100 MG PO SCH (09:01)
[2018-03-31] MEDS: DOCUSATE SODIUM 100 MG CAP PO SCH (09:01)
[2018-03-31] MEDS: AMOXICILLIN/CLAVULANATE 875 MG TAB PO SCH ×2 (09:01→11:54)
[2018-03-31] MEDS: ATORVASTATIN 40 MG PO SCH (09:01)
[2018-03-31] MEDS: ENOXAPARIN INJ 40 MG/0.4 ML SYR SQ SCH (09:01)
[2018-03-31] MEDS ORDERED: fentaNYL citrate 100 MCG/2 ML VIAL IV ONE (09:09)
[2018-03-31] MEDS ORDERED: LIDOCAINE HCL VISCOUS SOLN 2% 15 ML UDC MT ONE (09:09)
[2018-03-31] MEDS ORDERED: MIDAZOLAM HCL 1 MG/ML 2ML VIAL IV ONE (09:12)
--- NOTE | 2018-03-31 09:15 | Post Operative Brief Note ---
Immediate Post Op Note v1 Date of Surgery March 31, 2018 Pre & Post Diagnosis Operation Date: 03/31/18 09:00 Pre-Op Diagnosis: Mucous plugging right middle lobe post-op Post-Op Diagnosis: Same Procedure Operation Date: 03/31/18 09:00 Actual Procedures Bronchoscopy Radiology(Bilateral) - Junaid Mathur MD, FACS Surgeon Junaid Mathur MD, FACS Bun Panner Marielena OVEN DAUBER Estimated Blood Loss 0 Findings See Below Thick mucous in BI and RML orifice. Cleared nicely. Drains Chest Tube (24 Fr. Thal) and Sandoval Catheter (12 Fr. Sandoval catheter)
--- NOTE | 2018-03-31 09:15 | Post Anesthesia Assessment ---
Date of Service March 31, 2018 Post Sedation Assessment Vital Signs Temp Pulse Pulse Pulse Resp BP BP 03/31/18 09:05 79 22 169/72 H 03/31/18 09:00 90 22 170/87 H 03/31/18 08:55 70 19 143/66 H 03/31/18 08:50 66 18 134/60 03/31/18 07:28 36.8 C 68 17 114/73 03/30/18 23:08 36.4 C L 87 18 102/68 03/30/18 15:07 36.3 C L 80 22 124/76 Pulse Ox 03/31/18 09:05 94 03/31/18 09:00 92 03/31/18 08:55 94 03/31/18 08:50 94 03/31/18 07:28 93 03/30/18 23:08 92 03/30/18 15:07 93 Recovery Score Activity: Moves 4 extremities Respiration: Deep Breath/Cough Circulation: +/-20% PreAnes Value Consciousness: Fully Awake Oxygen Saturation: O2 needed for >90% Post Anesthesia Score: 9 Post Sedation Plan On clinical assessment, the patient appears to have tolerated the sedation without complications. Patient is recovering as anticipated. Patient will continue to be monitored by nursing and may be discharged when sedation discharge criteria are met per below protocol. Upon Completions of procedure and additional 15 minutes continue every 5 minute vital signs and the P.A.R. score; then discharge to a Phase I or Fast Track to Phase II per the following guidelines: * Discharge Patient to appropriate Phase II area if PAR is 8 or greater or return to pre- procedure baseline. The post - procedure orders will be as directed. * If PAR score is less than 8 or not return to pre-procedure baseline then patient will follow Phase I monitoring till PAR is reached for Phase II. The Phase I may be done in procedure room or may call to secure a Phase I area. * If naloxone or flumazenil are used for reversal, hold in Phase I for continued monitoring from when last reversal dose was given for a minimum of 60 minutes or longer pending the nurse and/or physician discretion of patient condition before discharge to Phase II. Please call the Sedation Physician to re-evaluate and complete post-note for discharge to Phase II area. Do NOT discharge from procedure sedation or Phase 1 until post- sedation evaluation note is complete by procedure /sedation MD Sedation Discharge Instructions to be given to the patient at discharge to home.
--- NOTE | 2018-03-31 09:44 | Operative Report ---
DATE OF OPERATION: 03/31/2018 PREOPERATIVE DIAGNOSIS: Mucus plugging, status post robot-assisted thoracoscopic right upper lobectomy for non-small cell lung carcinoma. POSTOPERATIVE DIAGNOSIS: Mucus plugging, status post robot-assisted thoracoscopic right upper lobectomy for non-small cell lung carcinoma. PROCEDURE: Fiberoptic bronchoscopy with therapeutic suctioning of mucus plugging. SURGEON: Junaid Mathur MD COTTON AGENT: Naren Peguero, registered respiratory therapist. ANESTHESIA: Sedation with local. DESCRIPTION OF PROCEDURE: Mr. Romero is a 77-year-old male who underwent a robot-assisted thoracoscopic right upper lobectomy what turned out to be non-small cell lung carcinoma. He has done remarkably well given the problems that he has, however, despite the fact that he is walking in the hallway and coughing. He is not able to cough as well as we would like. He has atelectasis. We removed his chest tube yesterday and he coughed more and more. His x-ray was a bit better. He still had collapse of his middle lobe. He is quite concerned about this, so I held him n.p.o. and this morning when his x-ray had not improved to my liking, I offered him a therapeutic bronchoscopy. On the morning of 03/31/2018, I brought the patient down to the bronchoscopy suite and performed an uncomplicated therapeutic fiberoptic bronchoscopy through his right naris. We anesthetized this with Xylocaine nebulizer as well as Xylocaine gel. He had some mild discomfort but actually did quite well. He had inspissated mucus in the right middle lobe orifice and the bronchus intermedius. The staple line looked quite good from the upper lobe. I removed this thick yellow sputum and it irrigated clear. I had to remove the scope a few times as it was completely filled with mucus and was occluded. We did send this off for culture. Finally, we completely cleared everything out. I irrigated out the middle lobe and the lower lobe and it looked quite good. We did get pretty thick sputum from the superior segment of the lower lobe. After we cleared this all out, I was quite happy. He really did not have that much inflammation. He tolerated it well. The left side was very clean. I removed the scope without difficulty. We did give him a 75 mcg of fentanyl and 2 mg of Versed. He tolerated it well and chest x-ray is pending at this time. I attest to the content of the Intraoperative Record and any orders documented therein. Any exception s are noted below.
--- NOTE | 2018-03-31 09:47 | XRay Report ---
XR chest 1V not portable CLINICAL HISTORY: Status post fiberoptic contrast could be COMPARISON STUDY: 03/31/2018 FINDINGS: The heart remains enlarged. There is elevation the right hemidiaphragm. There is a suspecte d small right pleural effusion. There is right basilar atelectasis/consolidation. There is no focal p ulmonary consolidation on the left. There is a tiny right apical pneumothorax.[ IMPRESSION: 1. Tiny right apical pneumothorax 2. Small right pleural effusion with persistent right basilar atelectasis/consolidation Electronically signed by: Ben Stein M.D. 03/31/2018 9:45 AM
--- NOTE | 2018-03-31 16:13 | Discharge Summary ---
DISCHARGE DIAGNOSES: 1. Squamous cell carcinoma, right upper lobe. 2. Atelectasis secondary to bronchial occlusion from sputum production. 3. History of abdominal aortic aneurysm. 4. Hyperlipidemia. 5. Hypertension. 6. Diabetes mellitus. HOSPITAL COURSE: This is a 77-year-old male who was found to have a mass in his right upper lobe. We worked him up, and I took him to the operating room on 03/27/2018 and performed a robot-assisted thoracoscopic right upper lobe wedge resection, this came back as a carcinoma. I did a robot-assisted thoracoscopic right upper lobectomy with a robot-assisted thoracoscopic mediastinal lymphadenectomy. He did quite well with this. He got on to room air quite quickly, and his x-ray looked great. He had a small air leak, and we watched this until postop day 3 where I removed his chest tube. Unfortunately, he had collapse of his middle lobe. I hoped that by removing the chest tube, he would be able to cough better, and he did cough well. He also ambulated well; however, his lung did not expand the way I wanted to. On the morning of 03/31/2018, I brought him down to the bronchoscopy suite and did a fiberoptic bronchoscopy. His therapeutic bronchoscopy resulted in suctioning out the mucus from his middle lobe and some in the lower lobe bronchi. The right upper lobe stump looked quite good. His chest x-ray was much improved after this. He did very well, was ambulating in the hallway, tolerating a regular diet. He was rather eager to go home, and as he was on room air without a chest tube, I felt we could send him home. Discussed this with his brother. I will see him back in the office next week with a chest x-ray. I have told him to call me should any problems arise.
== END 2018-03-31 13:41 | disposition home health service (06) | DRG 164 ==
LOC: ASU 10:18 → 3N 16:58

== ENCOUNTER 2019-07-18 12:50 | Inpatient (IN) ==
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
[2019-07-18] MEDS ORDERED: SODIUM CHLORIDE 0.9% 1000ML 1,000 ML IV STA (15:13)
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
[2019-07-18 16:11] LABS: Basophils # (auto) 0.02 K/uL (0-0.2); Basophils % (auto) 0.2 %; Eosinophils # (auto) 0.09 K/uL (0-0.5); Eosinophils % (auto) 0.9 %; Hematocrit (blood only) 40.1 % (42-52); Hemoglobin 13.6 g/dL (14.0-18.0); Immature Granulocytes # (auto) 0.02 K/uL (0.00-0.02); Immature Granulocytes % (auto) 0.2 %; Lymphocytes # (auto) 1.28 K/uL (1.2-3.4); Lymphocytes % (auto) 13.1 %; Mean Corpuscular Hemoglobin 37.2 pg (25-34); Mean Corpuscular Hgb Conc 33.9 g/dL (32-36); Mean Corpuscular Volume 109.6 fL (80-100); Mean Platelet Volume 9.7 fL (7.4-10.4); Monocytes # (auto) 0.62 K/uL (0.11-0.59); Monocytes % (auto) 6.3 %; Neutrophils # (auto) 7.76 K/uL (1.4-6.5); Neutrophils % (auto) 79.3 %; Platelet Count 262 K/uL (130-400); RDW Coefficient of Variation 15.5 % (11.5-14.5); RDW Standard Deviation 62.1 fL (36.4-46.3); Red Blood Count 3.66 M/uL (4.7-6.1); White Blood Count 9.79 K/uL (4.8-10.8)
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
[2019-07-18 16:28] LABS: Albumin Level 3.2 gm/dl (3.4-5.0); BUN Creatinine Ratio 14.4 (10-20); Calcium 10.1 mg/dl (8.5-10.1); Est GFR (African American) 58.6; Est GFR (Non-African American) 50.6
[2019-07-18 16:31] LABS: Albumin Globulin Ratio 0.8 (0.9-2); Bilirubin,Total 0.6 mg/dl (0.2-1); Globulin 4.3 gm/dl (2.5-4.0); Total Protein 7.5 gm/dl (6.4-8.2)
[2019-07-18] MEDS ORDERED: SODIUM CHLORIDE 0.9% 1000ML 500 ML IV ONE (17:07)
[2019-07-18] MEDS ORDERED: ACETAMINOPHEN 325 MG TAB PO PRN (18:23)
--- NOTE | 2019-07-18 18:52 | Magnetic Resonance Report ---
MRI OF THE CERVICAL SPINE WITHOUT CONTRAST CLINICAL HISTORY: Trauma. Neck pain. COMPARISON: Cervical spine CT July 18, 2019 at 1:57 PM. TECHNIQUE: Utilizing a 1.5 [place]a magnet and dedicated coil, multiplanar, multiecho imaging of the ce rvical spine was performed without IV contrast. FINDINGS: This exam is moderately compromised by motion artifact. Cervical cord signal is suboptimally assessed . There is suggestion of mild increased T2 signal within the cord at the C3-C4 level. There is mild c ord volume loss. Therefore, this favors myelomalacia. No cord edema is identified. No intracanalicula r hematoma is identified. Note is made of prevertebral edema at the C6-T2 levels. There is probable t ear of the anterior longitudinal ligament at the C6-C7 level with slight widening of the disc space a nteriorly. Note is made of mild interspinous edema at C5-C7 levels. The nondisplaced bilateral C6 fra ctures are better depicted on the CT performed earlier today. There is mild posterior disc osteophyte complex at C6-C7 which slightly effaces the ventral thecal sac. There is no severe central canal rosa nosis. Severe multilevel facet arthrosis is noted. There is moderate multilevel disc space narrowing and osteophytosis. The suspected supraglottic mass is shown on the T2-weighted sequence. This favors a neoplasm. IMPRESSION: 1. Increased fluid signal and widening of the C6-C7 disc space with suspected tear of the anterior lo ngitudinal ligament at this level. Mild interspinous edema at the C5-C7 levels. These findings sugges t an acute hyperextension injury. Mild central canal narrowing at this level due to posterior disc os teophyte complex. No severe central canal stenosis. Bilateral C6 fractures better depicted on CT of t he cervical spine performed earlier today. 2. Cord signal suboptimally assessed given motion artifact. Mild increased T2 signal at the C3-C4 lev el with volume loss favors myelomalacia. No cord edema identified. 3. No intracanalicular fluid collection. 4. Suspected supraglottic mass suspicious for neoplasm. ENT consultation is recommended. ACT 112: Negative or not required by law. Electronically signed by: Dmitri Kline M.D. 07/18/2019 6:51 PM
[2019-07-18] MEDS: INSULIN ASPART 100 UNITS/ML 3 ML PEN SC SCH ×2 (19:30→22:37)
[2019-07-18] MEDS: VARENICLINE 1 MG TAB PO SCH (21:02)
--- NOTE | 2019-07-19 06:27 | Electrocardiogram Report ---
Test Reason : Blood Pressure : / mmHG Vent. Rate : 076 BPM Atrial Rate : 098 BPM P-R Int : 000 ms QRS Dur : 072 ms QT Int : 402 ms P-R-T Axes : 000 -07 054 degrees QTc Int : 452 ms Poor data quality, interpretation may be adversely affected Probable Sinus rhythm with frequent Premature atrial complexes Abnormal ECG When compared with ECG of 20-FEB-2018 12:42, No significant change Confirmed by Eliud Valentine ([id number]) on 07/19/2019 6:27:00 AM Referred By: REFERRED SELF Confirmed By:Eliud Valentine
[2019-07-19] MEDS: VARENICLINE 1 MG TAB PO SCH ×2 (07:28→21:29)
[2019-07-19] MEDS: ATORVASTATIN 40 MG TAB PO SCH (07:28)
[2019-07-19] MEDS: LOSARTAN POTASSIUM 50 MG TAB PO SCH (07:28)
[2019-07-19] MEDS: VITAMIN B COMPLEX TAB PO SCH (07:28)
[2019-07-19] MEDS: INSULIN ASPART 100 UNITS/ML 3 ML PEN SC SCH ×4 (08:09→21:28)
--- NOTE | 2019-07-19 10:37 | Hospitalist Progress Note ---
Date of Service July 19, 2019 Assessment & Plan (1) Closed cervical spine fracture: On CT - Hyperextension injury fracture pattern with widened intervertebral disc space at C6-7 and nondisplaced fractures of the posterior elements involving the right C6 pedicle and left C6 pars interarticularis. Presumed anterior longitudinal ligamentous injury. MRI performed showing increased fluid signal and widening of the C6-C7 disc space with suspected tear of the anterior longitudinal ligament at this level. Mild interspinous edema at the C5-C7 levels. These findings suggest an acute hyperextension injury. Mild central canal narrowing at this level due to posterior disc osteophyte complex. No severe central canal stenosis. Bilateral C6 fractures better depicted on CT of the cervical spine performed earlier today. [place] J collar in place at all times until surgery Ortho spine consulted - to surgery this morning (2) COPD (chronic obstructive pulmonary disease): Current smoker. Does not appear to be treated (3) DM (diabetes mellitus), type 2 with neurological complications: BSG ac & hs hold home metformin SS (4) Hypertensive urgency: Resolved, not mildly hypotensive Continue home losartan (5) Mass of epiglottis: Seen on CT and again on MRI: Suspected supraglottic mass suspicious for neoplasm. Will need to follow up with ENT Admission and Anticipated Discharge Date Admission Date: July 18, 2019 Subjective Mr. Romero has some soreness and discomfort in his neck. He continues to have right sided pain in his chest that his chronic. ROS Constitutional: no chills, aches, sweats or fever Respiratory: no sob,cough, sputum, or wheezing Cardiac: no chest pain, palpitations, edema, orthopnea or lightheadedness GI: no abdominal pain, nausea, vomiting, diarrhea or constipation : no dysuria or hesitancy Extremities: no joint pain or weakness Skin: no rash All other systems reviewed and negative Physical Exam Physical Exam: General: no distress Eyes: normal inspection, PERLL Respiratory: chest non tender, clear to auscultation, normal breath sounds, no respiratory distress, no accessory muscle use Cardiac: regular rate and rhythm, no rub or gallop, no murmur, no edema, no jvd GI/: active bowel sounds, no abd pain or tenderness, soft, non distended Extremities: normal range of motion, normal strength, non tender Neuro/Psych: alert and oriented x 3, normal mood and affect Skin: normal color, dry Results & Data Results & Data ([facility]) Vital Signs (Past 12 Hours) Vital Signs Temp Pulse Resp BP Pulse Ox 07/19/19 06:34 36.9 C 72 20 93/66 L 94 07/19/19 02:35 36.6 C 57 L 20 115/68 95 07/18/19 23:32 36.8 C 66 20 115/61 97 PG Care Time/CCT Total # of Minutes Spent Total Time Spent with Patient: Total time spent is greater than 50% in coordination of care (as documented) at patient's floor/unit and/or counseling patient: Coding Level of Care Code 38690 Subseq Hosp Care Lvl 3 Diagnoses Closed cervical spine fracture S12.9XXA COPD (chronic obstructive pulmonary disease) J44.9 DM (diabetes mellitus), type 2 with neurological complications E11.49 Hypertensive urgency I16.0 Mass of epiglottis J38.7
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
[2019-07-20] MEDS: INSULIN ASPART 100 UNITS/ML 3 ML PEN SC SCH ×4 (08:21→21:37)
[2019-07-20 08:31] LABS: Basophils # (auto) 0.02 K/uL (0-0.2); Basophils % (auto) 0.3 %; Eosinophils # (auto) 0.18 K/uL (0-0.5); Eosinophils % (auto) 2.7 %; Hematocrit (blood only) 36.1 % (42-52); Hemoglobin 12.1 g/dL (14.0-18.0); Immature Granulocytes # (auto) 0.02 K/uL (0.00-0.02); Immature Granulocytes % (auto) 0.3 %; Lymphocytes # (auto) 1.36 K/uL (1.2-3.4); Lymphocytes % (auto) 20.1 %; Mean Corpuscular Hemoglobin 36.1 pg (25-34); Mean Corpuscular Hgb Conc 33.5 g/dL (32-36); Mean Corpuscular Volume 107.8 fL (80-100); Mean Platelet Volume 9.6 fL (7.4-10.4); Monocytes # (auto) 0.56 K/uL (0.11-0.59); Monocytes % (auto) 8.3 %; Neutrophils # (auto) 4.62 K/uL (1.4-6.5); Neutrophils % (auto) 68.3 %; Platelet Count 226 K/uL (130-400); RDW Coefficient of Variation 15.2 % (11.5-14.5); RDW Standard Deviation 59.9 fL (36.4-46.3); Red Blood Count 3.35 M/uL (4.7-6.1); White Blood Count 6.76 K/uL (4.8-10.8)
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
[2019-07-20 08:58] LABS: BUN Creatinine Ratio 19.1 (10-20); Calcium 9.1 mg/dl (8.5-10.1); Creatinine Clr Calc Pharmacy 62.5 ml/min; Est GFR (African American) 72.3; Est GFR (Non-African American) 62.4; Potassium 3.7 mmol/L (3.5-5.1)
--- NOTE | 2019-07-20 09:18 | History & Physical Bridge Note ---
Date of Service July 20, 2019 History & Physical Bridge Note I have examined the patient, reviewed the History & Physical and in the interval since the performance of the History & Physical I have noted the following changes of clinical significance: no changes noted
[2019-07-20] MEDS ORDERED: MIDAZOLAM HCL 1 MG/ML 2ML VIAL ONE (09:50)
[2019-07-20] MEDS ORDERED: fentaNYL citrate 100 MCG/2 ML VIAL ONE ×3 (09:51→11:47)
[2019-07-20] MEDS ORDERED: CEFAZOLIN 2000MG 2,000 MG/15 ML SYR IV ONE (09:55)
[2019-07-20] MEDS ORDERED: BACITRACIN INJ 50,000 UNIT VIAL ONE (09:57)
[2019-07-20] MEDS ORDERED: CEFAZOLIN 2,000 MG/15 ML IV PUSH IV ONE (09:58)
[2019-07-20] MEDS ORDERED: LIDOCAINE HCL 5% OINT 30 GM TUBE ONE (10:01)
[2019-07-20] MEDS ORDERED: GLYCOPYRROLATE 0.2 MG/ML VIAL ONE ×2 (10:13→11:31)
[2019-07-20] MEDS ORDERED: LIDOCAINE HCL 2% 2 ML VIAL/AMP(20MG/ML) INFIL ONE ×2 (10:19→11:30)
--- NOTE | 2019-07-20 10:33 | Hospitalist Progress Note ---
Date of Service July 20, 2019 Assessment & Plan (1) Closed cervical spine fracture: On CT - Hyperextension injury fracture pattern with widened intervertebral disc space at C6-7 and nondisplaced fractures of the posterior elements involving the right C6 pedicle and left C6 pars interarticularis. Presumed anterior longitudinal ligamentous injury. MRI performed showing increased fluid signal and widening of the C6-C7 disc space with suspected tear of the anterior longitudinal ligament at this level. Mild interspinous edema at the C5-C7 levels. These findings suggest an acute hyperextension injury. Mild central canal narrowing at this level due to posterior disc osteophyte complex. No severe central canal stenosis. Bilateral C6 fractures better depicted on CT of the cervical spine [place] J collar in place at all times until surgery Ortho spine consulted - to surgery 07/19 Will need PT/OT after surgery (2) COPD (chronic obstructive pulmonary disease): Current smoker. Does not appear to be treated (3) DM (diabetes mellitus), type 2 with neurological complications: BSG ac & hs hold home metformin SS (4) Hypertensive urgency: Resolved, now mildly hypotensive Continue home losartan (5) Mass of epiglottis: Seen on CT and again on MRI: Suspected supraglottic mass suspicious for neoplasm. ortho discussed with ENT and they will perform a biopsy before the neck procedure Admission and Anticipated Discharge Date Admission Date: July 18, 2019 Subjective Some pain in neck and back, awaiting surgery this morning. ROS Constitutional: no chills, aches, sweats or fever Respiratory: no sob,cough, sputum, or wheezing Cardiac: no chest pain, palpitations, edema, orthopnea or lightheadedness GI: no abdominal pain, nausea, vomiting, diarrhea or constipation : no dysuria or hesitancy Extremities: no joint pain or weakness Skin: no rash All other systems reviewed and negative Physical Exam Physical Exam: General: no distress Eyes: normal inspection, PERLL Respiratory: chest non tender, clear to auscultation, normal breath sounds, no respiratory distress, no accessory muscle use Cardiac: regular rate and rhythm, no rub or gallop, no murmur, no edema, no jvd GI/: active bowel sounds, no abd pain or tenderness, soft, non distended Extremities: normal range of motion, normal strength, non tender Neuro/Psych: alert and oriented x 3, normal mood and affect Skin: normal color, dry Results & Data Results & Data ([facility]) Vital Signs (Past 12 Hours) Vital Signs Temp Pulse Resp BP BP Pulse Ox 07/20/19 09:42 36.7 C 69 18 112/59 L 96 07/20/19 07:21 36.8 C 91 H 18 89/50 L 97 07/19/19 23:40 36.9 C 65 18 135/54 L 96 PG Care Time/CCT Total # of Minutes Spent Total Time Spent with Patient: Total time spent is greater than 50% in coordination of care (as documented) at patient's floor/unit and/or counseling patient: Coding Level of Care Code 97791 Subseq Hosp Care Lvl 2 Diagnoses Closed cervical spine fracture S12.9XXA COPD (chronic obstructive pulmonary disease) J44.9 DM (diabetes mellitus), type 2 with neurological complications E11.49 Hypertensive urgency I16.0 Mass of epiglottis J38.7
[2019-07-20] MEDS ORDERED: OXYTOCIN 10 UNITS/ML VIAL ONE (11:30)
[2019-07-20] MEDS ORDERED: ROCURONIUM BROMIDE 10 MG/ML 5 ML VIAL ONE (11:30)
[2019-07-20] MEDS ORDERED: PROPOFOL IV EMULSION 10 MG/ML 20 ML VIAL IV ONE (11:30)
[2019-07-20] MEDS ORDERED: NEOSTIGMINE METHYLSULFATE 5 MG/5 ML SYR ONE (11:31)
[2019-07-20] MEDS ORDERED: ONDANSETRON INJ 2 MG/ML 2 ML VIAL ONE (11:31)
[2019-07-20] MEDS ORDERED: DEXAMETHASONE SOD INJ 4 MG/ML VIAL ONE (11:31)
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
[2019-07-20] MEDS ORDERED: PHENYLEPHRINE 100MCG/ML 5ML SYR IV PRN (11:41)
[2019-07-20] MEDS ORDERED: LABETALOL HCL IV 5 MG/ML 20ML IV PRN (11:41)
[2019-07-20] MEDS ORDERED: fentaNYL citrate 100 MCG/2 ML VIAL IV PRN (11:41)
[2019-07-20] MEDS ORDERED: ePHEDrine sulfate 50 MG/ML AMP IV PRN (11:41)
[2019-07-20] MEDS ORDERED: HYDROmorphone INJ 1 MG/ML SYRINGE IV PRN ×2 (11:41→14:21)
[2019-07-20] MEDS ORDERED: ONDANSETRON INJ 2 MG/ML 2 ML VIAL IV PRN ×2 (11:41→14:21)
[2019-07-20] MEDS ORDERED: ATROPINE SULFATE 0.1 MG/ML 10ML SYR IV PRN (11:41)
[2019-07-20] MEDS ORDERED: MEPERIDINE HCL 25 MG/ML CARP/VIAL IV PRN (11:41)
[2019-07-20] MEDS ORDERED: HYDROmorphone INJ 2 MG/ML SYR/VIAL ONE (11:42)
[2019-07-20] MEDS ORDERED: SUGAMMADEX SODIUM 200 MG/2 ML VIAL IV ONE (11:45)
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
[2019-07-20] MEDS ORDERED: FLOSEAL HEMOSTATIC MATRIX 10ML TOP ONE (12:47)
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
--- NOTE | 2019-07-20 13:29 | Anesthesiology Progress Note ---
Date of Service July 20, 2019 Anesthesia Post Procedure Vital Signs Vital Signs: Temp Pulse Pulse Pulse Resp BP BP 07/20/19 13:20 75 14 110/81 07/20/19 13:10 69 14 110/55 L 07/20/19 13:00 79 16 114/66 07/20/19 12:52 37.0 C 76 16 110/54 L 07/20/19 09:42 36.7 C 69 18 112/59 L 07/20/19 07:21 36.8 C 91 H 18 89/50 L 07/19/19 23:40 36.9 C 65 18 135/54 L 07/19/19 16:00 36.4 C L 71 18 103/66 07/19/19 15:24 66 Pulse Ox 07/20/19 13:20 97 07/20/19 13:10 97 07/20/19 13:00 98 07/20/19 12:52 100 07/20/19 09:42 96 07/20/19 07:21 97 07/19/19 23:40 96 07/19/19 16:00 96 07/19/19 15:24 Pain Intensity Neck: Pain Intensity: 2 Transfer of Care Handoff Completed per policy Notes Mental Status: alert / awake / arousable Patient Amnestic to Procedure: Yes Nausea / Vomiting: adequately controlled Pain: adequately controlled Airway Patency, RR, SpO2: stable & adequate BP & HR: stable & adequate Hydration State: stable & adequate Anesthetic Complications: no major complications apparent and Pt Satisfied with anesthetic care Notes: The patient is awake and stable. His neck does not appear swollen.
[2019-07-20] MEDS ORDERED: NALOXONE HCL 0.4 MG/1 ML VIAL/CARP IV PRN (14:21)
[2019-07-20] MEDS ORDERED: DO NOT ADMINISTER PNEUMOCOCCAL VACCINE PRN (14:21)
[2019-07-20] MEDS ORDERED: MAGNESIUM HYDROXIDE SUSP 30 ML UDC PO PRN (14:21)
[2019-07-20] MEDS ORDERED: RACEPINEPHRINE 2.25% NEBU SOLN 0.5 ML VIAL INH PRN (14:21)
[2019-07-20] MEDS ORDERED: ONDANSETRON 4 MG OD TAB PO PRN (14:21)
[2019-07-20] MEDS ORDERED: LORazepam 0.5 MG/1 ML VIAL IV PRN (14:21)
[2019-07-20] MEDS ORDERED: LACTATED RINGER'S 1,000 ML IV SCH (14:21)
[2019-07-20] MEDS ORDERED: DO NOT ADMINISTER FLU VACCINE PRN (14:21)
[2019-07-20] MEDS ORDERED: HYDROmorphone INJ 0.5 MG/0.5 ML SYR IV PRN (14:21)
[2019-07-20] MEDS ORDERED: FAMOTIDINE 20 MG TAB PO PRN (14:21)
[2019-07-20] MEDS ORDERED: PROMETHAZINE HCL 12.5 MG in SODIUM CHLORIDE 0.9% 50 ML IV PRN (14:21)
[2019-07-20] MEDS ORDERED: TRAMADOL HCL 50 MG TABLET PO PRN (14:21)
[2019-07-20] MEDS ORDERED: ACETAMINOPHEN 500 MG TAB PO PRN (14:21)
[2019-07-20] MEDS ORDERED: ALUMINUM/MAGNESIUM SUSP 30 ML UDC PO PRN (14:21)
[2019-07-20] MEDS ORDERED: DEXAMETHASONE SOD PHOSPHATE 8 MG in SYRINGE 0 ML IV PRN (14:21)
[2019-07-20] MEDS ORDERED: OXYCODONE HCL IR 5 MG TAB (IMMEDIATE RELEASE) PO PRN (14:21)
[2019-07-20] MEDS ORDERED: LORazepam 0.5 MG TAB PO PRN (14:21)
[2019-07-20] MEDS ORDERED: SOD PHOSPHATE/SOD BIPHOSPHATE ENEMA 132 ML BTL PR PRN (14:21)
[2019-07-20] MEDS ORDERED: METOCLOPRAMIDE HCL INJ 5 MG/ML 2 ML VIAL IV PRN (14:21)
[2019-07-20] MEDS ORDERED: ACETAMINOPHEN 1,000 MG/100 ML VIAL IV PRN (14:21)
[2019-07-20] MEDS: VARENICLINE 1 MG TAB PO SCH ×2 (15:32→21:25)
[2019-07-20] MEDS: ATORVASTATIN 40 MG TAB PO SCH (15:32)
[2019-07-20] MEDS: LOSARTAN POTASSIUM 50 MG TAB PO SCH (15:32)
[2019-07-20] MEDS: VITAMIN B COMPLEX TAB PO SCH (15:33)
[2019-07-20] MEDS ORDERED: haloperidoL 1 MG TAB PO PRN (17:58)
[2019-07-20] MEDS: CEFAZOLIN 2000MG 2,000 MG/15 ML SYR IV SCH (19:53)
[2019-07-20] MEDS ORDERED: DOCUSATE SODIUM/SENNA 50/8.6MG TAB PO SCH (21:00)
[2019-07-21] MEDS: CEFAZOLIN 2000MG 2,000 MG/15 ML SYR IV SCH (04:30)
[2019-07-21] MEDS: INSULIN ASPART 100 UNITS/ML 3 ML PEN SC SCH ×2 (08:33→12:42)
[2019-07-21] MEDS: ATORVASTATIN 40 MG TAB PO SCH (08:52)
[2019-07-21] MEDS: LOSARTAN POTASSIUM 50 MG TAB PO SCH (08:52)
[2019-07-21] MEDS: VITAMIN B COMPLEX TAB PO SCH (08:52)
[2019-07-21] MEDS: VARENICLINE 1 MG TAB PO SCH (09:27)
--- NOTE | 2019-07-21 09:48 | Orthopedic Progress Note ---
Date of Service July 21, 2019 Assessment & Plan (1) Closed cervical spine fracture: At this time he is okay to discharge home per orthopedics. I had a lengthy discussion with this patient regarding the necessity of wearing his cervical collar except for eating and showering. He seems to understand and agree. Present on Admission?: Yes Admission and Anticipated Discharge Date Admission Date: July 18, 2019 Subjective Patient states his neck symptoms are improved. He is swallowing without difficulty. He has no arm pain. Physical Exam Physical Exam: On exam is good strength testing appears comfortable. Results & Data ([facility]) Vital Signs (Past 12 Hours) Vital Signs Temp Pulse Resp BP BP Pulse Ox 07/21/19 08:28 90 18 161/78 H 93 07/21/19 07:48 44 L 14 94 07/21/19 06:36 36.7 C 71 18 104/50 L 98 07/21/19 04:35 36.7 C 86 18 109/60 95 07/21/19 03:25 76 18 94 07/21/19 02:15 36.8 C 63 18 114/50 L 97 07/21/19 00:15 36.7 C 87 16 102/57 L 95 07/20/19 23:05 36.7 C 81 18 104/58 L 96 07/20/19 23:00 66 18 90
[2019-07-21] MEDS ORDERED: POLYETHYLENE (MIRALAX) 17 GM PACK PO SCH (12:20)
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
[2019-07-22] MEDS ORDERED: bisacodyL 10 MG SUPP PR PRN (12:20)
== END 2019-07-21 16:21 | DRG 473 ==
LOC: ED 12:50 → 2W 16:29 → SUATTDRO 16:29 → 2W 17:40 → 3E 07-20 14:15

== ENCOUNTER 2019-09-03 20:53 | Inpatient (IN) ==
[2019-09-03 23:44] LABS: Alanine Aminotransferase 32 U/L (12-78); Albumin Level 2.3 gm/dl (3.4-5.0); Aspartate Aminotransferase 40 U/L (15-37); BUN Creatinine Ratio 13.4 (10-20); Blood Urea Nitrogen 28 mg/dl (7-18); Calcium 9.6 mg/dl (8.5-10.1); Carbon Dioxide 28 mmol/L (21-32); Chloride 104 mmol/L (98-107); Est GFR (African American) 33.6; Glucose 88 mg/dl (70-99); Potassium 3.1 mmol/L (3.5-5.1); Sodium 140 mmol/L (136-145)
[2019-09-03 23:49] LABS: Albumin Globulin Ratio 0.5 (0.9-2); Alkaline Phosphatase 179 U/L (45-117); Bilirubin,Total 0.5 mg/dl (0.2-1); Creatine Kinase 414 U/L (39-308); Globulin 4.5 gm/dl (2.5-4.0); Total Protein 6.8 gm/dl (6.4-8.2); Troponin I 0.028 ng/ml (0-0.045)
[2019-09-04 00:04] LABS: Basophils # (auto) 0.01 K/uL (0-0.2); Basophils % (auto) 0.1 %; Eosinophils # (auto) 0.09 K/uL (0-0.5); Hematocrit (blood only) 37.4 % (42-52); Hemoglobin 12.5 g/dL (14.0-18.0); Immature Granulocytes # (auto) 0.03 K/uL (0.00-0.02); Immature Granulocytes % (auto) 0.3 %; Lymphocytes # (auto) 1.16 K/uL (1.2-3.4); Lymphocytes % (auto) 12.7 %; Mean Corpuscular Hemoglobin 34.8 pg (25-34); Mean Corpuscular Hgb Conc 33.4 g/dL (32-36); Mean Corpuscular Volume 104.2 fL (80-100); Mean Platelet Volume 9.7 fL (7.4-10.4); Monocytes # (auto) 0.59 K/uL (0.11-0.59); Monocytes % (auto) 6.5 %; Neutrophils # (auto) 7.25 K/uL (1.4-6.5); Neutrophils % (auto) 79.4 %; Platelet Count 247 K/uL (130-400); RDW Coefficient of Variation 15.2 % (11.5-14.5); RDW Standard Deviation 58.9 fL (36.4-46.3); Red Blood Count 3.59 M/uL (4.7-6.1); White Blood Count 9.13 K/uL (4.8-10.8)
[2019-09-04] MEDS ORDERED: SODIUM CHLORIDE 0.9% 1000ML 500 ML IV ONE (00:11)
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
[2019-09-04] MEDS ORDERED: ONDANSETRON INJ 2 MG/ML 2 ML VIAL IV PRN (04:15)
[2019-09-04] MEDS ORDERED: ACETAMINOPHEN 325 MG TAB PO PRN (04:15)
[2019-09-04] MEDS ORDERED: POLYETHYLENE (MIRALAX) 17 GM PACK PO PRN (04:15)
[2019-09-04] MEDS ORDERED: MAGNESIUM HYDROXIDE SUSP 30 ML UDC PO PRN (04:15)
[2019-09-04] MEDS ORDERED: MoRPHine SULFATE 5 MG/0.25 ML UDP PO PRN (04:47)
[2019-09-04] MEDS: NSS + 20MEQ KCL 20 MEQ/1,000 ML BAG IV SCH ×3 (05:01→23:32)
[2019-09-04 06:41] LABS: BUN Creatinine Ratio 15.1 (10-20); Blood Urea Nitrogen 26 mg/dl (7-18); Calcium 9.6 mg/dl (8.5-10.1); Carbon Dioxide 25 mmol/L (21-32); Chloride 108 mmol/L (98-107); Est GFR (African American) 42.3; Est GFR (Non-African American) 36.5; Glucose 76 mg/dl (70-99); Potassium 3.4 mmol/L (3.5-5.1); Sodium 142 mmol/L (136-145)
--- NOTE | 2019-09-04 06:57 | CT Scan Report ---
CT head/brain wo con CT DOSE: HISTORY: head injury, neck pain, fall TECHNIQUE: Multiaxial CT images of the head were performed without the use of intravenous contrast. A dose lowering technique was utilized adhering to the principles of ALARA. Comparison: None. Findings: The paranasal sinuses and mastoid air cells are clear. The calvarium and skull base are int act. The ventricles and sulci are within normal limits. There is no mass, hematoma, midline shift, or acute infarct. Impression: No acute intracranial abnormality. Age-related atrophy and chronic small vessel change. ACT 112: Negative or not required by law. The above report was generated using voice recognition software. It may contain grammatical, syntax or spelling errors. Electronically signed by: Leighton Harper M.D. 09/04/2019 6:56 AM
--- NOTE | 2019-09-04 07:04 | CT Scan Report ---
CT cervical spine wo con CT DOSE: 978.60 mGy.cm HISTORY: Trauma. Pain. head injury, neck pain, fall TECHNIQUE: Multiaxial CT images of the cervical spine were performed and reformatted in the sagittal and coronal plane without the use of contrast. A dose lowering technique was utilized adhering to e principles of ALARA. COMPARISON: None. FINDINGS: Generalized degenerative changes throughout. Findings consistent with an anterior cervical fusion at C6-C7. Considerable degenerative disc changes throughout. No evidence for an acute compression deformity. IMPRESSION: 1. No acute process. 2. Considerable degenerative and postoperative change. ACT 112: Negative or not required by law. The above report was generated using voice recognition software. It may contain grammatical, syntax or spelling errors. Electronically signed by: Leighton Harper M.D. 09/04/2019 7:03 AM
--- NOTE | 2019-09-04 07:24 | XRay Report ---
XR chest 1V portable CLINICAL HISTORY: Fall. Head and neck cancer. COMPARISON STUDY: Chest radiograph July 31, 2019. PET/CT August 15, 2019. FINDINGS: Postoperative findings within the cervical spine are noted. Right lung volume loss with pos toperative findings within the right lung are noted. Right apical and basilar opacities are unchanged . Lytic lesion within the lateral right seventh rib is again noted. No pneumothorax. No lobar consoli dation is present. No evidence for pulmonary edema. IMPRESSION: 1. No pneumothorax. 2. No significant change in appearance of the chest with postoperative findings within the right lachelle thorax and redemonstration of a lytic lesion within the right seventh rib. ACT 112: Negative or not required by law. Electronically signed by: Dmitri Kline M.D. 09/04/2019 7:22 AM
--- NOTE | 2019-09-04 07:26 | XRay Report ---
XR shoulder RT min 2V routine CLINICAL HISTORY: right shoulder pain, fall COMPARISON: PET/CT August 15, 2019. FINDINGS: No acute fracture is noted. There is moderate osteoarthritis of the right acromioclavicula r and glenohumeral joints. A 2.7 cm lytic lesion within the base of the glenoid corresponds to an FDG avid lytic lesion on PET/CT of August 15, 2019. IMPRESSION: 1. No acute fracture or dislocation within the right shoulder. 2. 2.7 cm lytic lesion within the right scapula which corresponds to an FDG avid lesion on PET/CT of August 15, 2019. This represents a metastasis. 3. Moderate osteoarthritis of the right acromioclavicular and glenohumeral joints. ACT 112: Negative or not required by law. Electronically signed by: Dmitri Kline M.D. 09/04/2019 7:25 AM
--- NOTE | 2019-09-04 07:31 | XRay Report ---
XR hip ERIC 2v w pelvis CLINICAL HISTORY: fall, b/l hip pain COMPARISON STUDY: PET/CT August 15, 2019. FINDINGS: Note is made of a bifurcated aortoiliac stent graft. The sacroiliac joints and symphysis pu bis are intact. No acute fracture is identified within the pelvis or hips. IMPRESSION: No acute fracture within the pelvis or hips. ACT 112: Negative or not required by law. Electronically signed by: Dmitri Kline M.D. 09/04/2019 7:30 AM
[2019-09-04 08:37] LABS: Creatine Kinase 290 U/L (39-308)
[2019-09-04] MEDS: HEPARIN SOD 5,000 UNIT/0.5 ML VIAL SQ SCH ×2 (09:19→20:21)
--- NOTE | 2019-09-04 11:41 | Electrocardiogram Report ---
Test Reason : Blood Pressure : / mmHG Vent. Rate : 085 BPM Atrial Rate : 085 BPM P-R Int : 172 ms QRS Dur : 088 ms QT Int : 382 ms P-R-T Axes : 080 -09 086 degrees QTc Int : 454 ms Sinus rhythm with Premature atrial complexes Low voltage QRS Borderline ECG When compared with ECG of 18-JUL-2019 15:38, No significant change was found Confirmed by Cipriano Hairston ([id number]) on 09/04/2019 11:41:02 AM Referred By: Pio Villarreal Confirmed By:Cipriano Hairston
--- NOTE | 2019-09-04 14:38 | Hospitalist Progress Note ---
Date of Service September 04, 2019 Assessment & Plan (1) Squamous cell carcinoma of epiglottis: 78-year-old male with squamous cell carcinoma of the epiglottis on hospice/palliative care, admitted for syncopal event leading to a fall and being found down at home hours later. Syncope: - likely 2/2 hypovolemia/hypotension due to poor oral intake sec to epiglottis cancer - BP on admission 82/49; improved with hydration. - no hx abnormal cardiac rhythms, normal EKG in 07/24 - CK elevated at 414 secondary to be on ground for 11 hours - CK down to 290 this AM LUIS ALBERTO: - Cr 2.09 on admission, improved to 1.73 this AM - rehydrating with IV fluids Macrocytic Anemia: - Hg 12.5, stable - MCV 104, RDW 15.2 - no signs of active bleeding - continue to monitor Squamous Cell Carcinoma of Epiglottis: - pain management - tylenol + ibuprofen scheduled - roxanol per home regimen - consult Palliative per patient's wishes to limit further interventions Diet: regular (soft easy to chew foods preferred) DVT ppx: heparin SQ Code status: DNR/DNI, hospice Admission and Anticipated Discharge Date Admission Date: September 04, 2019 Supervising Physician Co-Signing Physician Notes Resident Physician Supervision Note: I independently interviewed and examined the patient and verified the beyer history and physical, reviewed labs and image studies, discussed the case with the resident Dr. Dietz and agree with the findings and care plan. Subjective Patient seen and evaluated prior to transportation from ED to floor. At that time, patient expressed that he was working with his PCP to restrict hospital involvement in his continued care as he is at this point approaching fatigue with the medical system and desires more palliative treatments. Returned to bedside later in the day, as patient frustrated with food options. Prefers tuna salad, egg salad, and puddings as these are easier for him to eat and do not cause him difficulty. Review of Systems Review of Systems: All systems reviewed & are unremarkable except as noted in Subjective Physical Exam Constitutional: WD/WN, vitals as above Eyes: PERRL, conjunctivae normal, anicteric sclerae Neck: normal visual inspection Respiratory: normal respiratory effort, lungs clear to auscultation able to speak in complete sentences; no labored breathing, no retractions, no cough and no audible wheezes Cardiovascular: Rate/Rhythm: regular rate and regular rhythm Heart Sounds: normal S1 and normal S2; no gallop, no murmur and no cardiac rub Vessels: no JVD Extremities: no pedal edema Gastrointestinal (Abdomen): normal bowel sounds, soft, nontender, no hepatosplenomegaly Musculoskeletal: no ecchymosis or edema over gluteal folds, moves all extremities, RUE with limited ROM 2/2 pain Neurologic: patellar DTR's 2+ bilat, sensation intact Psychiatric: A+Ox3, euthymic affect Results & Data Results & Data ([facility]) Vital Signs (Past 12 Hours) Vital Signs Temp Pulse Pulse Resp BP BP Pulse Ox 09/04/19 12:50 36.4 C L 80 16 96/59 L 97 09/04/19 12:00 36 C L 58 L 18 102/56 L 96 09/04/19 08:00 37 C 54 L 18 100/51 L 98 09/04/19 05:00 72 13 109/52 L 09/04/19 04:31 70 12 09/04/19 04:30 66 12 117/56 L 09/04/19 04:01 64 14 09/04/19 04:00 75 14 133/76 09/04/19 03:31 81 13 09/04/19 03:30 80 19 124/62 09/04/19 03:01 77 17 99 09/04/19 03:00 76 13 115/65 99 Laboratory Results 09/04/19 09/04/19 09/03/19 Range/Units 06:06 06:06 23:58 WBC 9.13 (4.8-10.8) K/uL RBC 3.59 L (4.7-6.1) M/uL Hgb 12.5 L (14.0-18.0) g/dL Hct 37.4 L (42-52) % MCV 104.2 H (80-100) fL MCH 34.8 H (25-34) pg MCHC 33.4 (32-36) g/dL RDW Std Deviation 58.9 H (36.4-46.3) fL RDW Coeff of Karri 15.2 H (11.5-14.5) % Plt Count 247 (130-400) K/uL MPV 9.7 (7.4-10.4) fL Immature Gran % (Auto) 0.3 % Neut % (Auto) 79.4 % Lymph % (Auto) 12.7 % [place] % (Auto) 6.5 % Eos % (Auto) 1.0 % Baso % (Auto) 0.1 % Neut # (Auto) 7.25 H (1.4-6.5) K/uL Lymph # (Auto) 1.16 L (1.2-3.4) K/uL [place] # (Auto) 0.59 (0.11-0.59) K/uL Eos # (Auto) 0.09 (0-0.5) K/uL Baso # (Auto) 0.01 (0-0.2) K/uL Immature Gran # (Auto) 0.03 H (0.00-0.02) K/uL Sodium 142 (136-145) mmol/L Potassium 3.4 L (3.5-5.1) mmol/L Chloride 108 H (98-107) mmol/L Carbon Dioxide 25 (21-32) mmol/L Anion Gap 9.0 (3-11) BUN 26 H (7-18) mg/dl Creatinine 1.73 H D (0.6-1.4) mg/dl Est Cr Clr Drug Dosing Not Reportable Est GFR ( Amer) 42.3 Est GFR (Non-Af Amer) 36.5 BUN/Creatinine Ratio 15.1 (10-20) Glucose 76 (70-99) mg/dl Calcium 9.6 (8.5-10.1) mg/dl Total Bilirubin (0.2-1) mg/dl AST (15-37) U/L ALT (12-78) U/L Alkaline Phosphatase (45-117) U/L Total Creatine Kinase Cancelled 290 (39-308) U/L Troponin I (0-0.045) ng/ml Total Protein (6.4-8.2) gm/dl Albumin (3.4-5.0) gm/dl Globulin (2.5-4.0) gm/dl Albumin/Globulin Ratio (0.9-2) 09/03/19 Range/Units 23:13 WBC (4.8-10.8) K/uL RBC (4.7-6.1) M/uL Hgb (14.0-18.0) g/dL Hct (42-52) % MCV (80-100) fL MCH (25-34) pg MCHC (32-36) g/dL RDW Std Deviation (36.4-46.3) fL RDW Coeff of Karri (11.5-14.5) % Plt Count (130-400) K/uL MPV (7.4-10.4) fL Immature Gran % (Auto) % Neut % (Auto) % Lymph % (Auto) % [place] % (Auto) % Eos % (Auto) % Baso % (Auto) % Neut # (Auto) (1.4-6.5) K/uL Lymph # (Auto) (1.2-3.4) K/uL [place] # (Auto) (0.11-0.59) K/uL Eos # (Auto) (0-0.5) K/uL Baso # (Auto) (0-0.2) K/uL Immature Gran # (Auto) (0.00-0.02) K/uL Sodium 140 (136-145) mmol/L Potassium 3.1 L (3.5-5.1) mmol/L Chloride 104 (98-107) mmol/L Carbon Dioxide 28 (21-32) mmol/L Anion Gap 8.0 (3-11) BUN 28 H (7-18) mg/dl Creatinine 2.09 H (0.6-1.4) mg/dl Est Cr Clr Drug Dosing Not Reportable Est GFR ( Amer) 33.6 Est GFR (Non-Af Amer) 29.0 BUN/Creatinine Ratio 13.4 (10-20) Glucose 88 (70-99) mg/dl Calcium 9.6 (8.5-10.1) mg/dl Total Bilirubin 0.5 (0.2-1) mg/dl AST 40 H (15-37) U/L ALT 32 (12-78) U/L Alkaline Phosphatase 179 H (45-117) U/L Total Creatine Kinase 414 H (39-308) U/L Troponin I 0.028 (0-0.045) ng/ml Total Protein 6.8 (6.4-8.2) gm/dl Albumin 2.3 L (3.4-5.0) gm/dl Globulin 4.5 H (2.5-4.0) gm/dl Albumin/Globulin Ratio 0.5 L (0.9-2) Medications Administered Current Inpatient Medications Acetaminophen (Tylenol) 650 mg PO Q4H PRN PRN Reason: pain/fever Stop: 10/04/19 04:14 Heparin Sodium (Porcine) (Heparin Sodium (Porcine)) 5,000 units SQ Q12 NEVIN Stop: 10/04/19 08:59 Last Admin: 09/04/19 09:19 Dose: 5,000 units Documented by: Potassium Chloride/Sodium Chloride (Normal Saline W/20 Meq Kcl) 20 meq in 1,000 mls @ 120 mls/hr IV .Q8H20M NEVIN Stop: 10/04/19 04:44 Last Infusion: 09/04/19 13:28 Dose: Infused Documented by: Magnesium Hydroxide (Milk Of Magnesia) 30 ml PO Q6H PRN PRN Reason: Constipation Stop: 10/04/19 04:14 Morphine Sulfate (Roxanol) 2.5 - 5 mg PO Q4H PRN PRN Reason: pain Stop: 09/18/19 04:46 Ondansetron HCl (Zofran) 4 mg IV Q6H PRN PRN Reason: Nausea Stop: 10/04/19 04:14 Polyethylene Glycol (Miralax Powder Packet) 17 gm PO DAILY PRN PRN Reason: Constipation Stop: 10/04/19 04:14 Resident Activity Tracking Resident Involvement: Resident Care Provided Care Provided: Adult Hospital Medicine
--- NOTE | 2019-09-04 19:15 | Billing Data ---
Date of Service September 04, 2019 Coding Level of Care Code 60657 Initial Inpt Care Lvl 2
[2019-09-05 06:00] LABS: Appearance Urine Slightly Cloudy (Clear); Bilirubin Urine Negative (Negative); Blood Urine Trace (Negative); Color Urine Yellow; Glucose Urine UA Negative (Negative); Ketones Urine Negative (Negative); Leukocyte Esterase Urine Negative (Negative); Nitrite Urine Negative (Negative); Protein Urine Negative (Negative); Specific Gravity Urine >= 1.030 (1.000-1.030); Urobilinogen Urine Negative (Negative); pH Urine 5.5 (4.5-7.5)
[2019-09-05 06:17] LABS: Hyaline Casts Urine 0-5 /lpf (0-5)
[2019-09-05 06:18] LABS: Bacteria Urine 1+ (Negative); Epithelial Cell Urine 0-5 /lpf (0-5); RBC Urine 0-4 /hpf (0-4); Uric Acid Crystals Urine Present (None Prsent); WBC Urine 0-5 /hpf (0-5)
[2019-09-05 08:07] LABS: BUN Creatinine Ratio 17.5 (10-20); Calcium 8.8 mg/dl (8.5-10.1); Creatinine Clr Calc Pharmacy 52.2 ml/min; Est GFR (African American) 59.2; Est GFR (Non-African American) 51.1
[2019-09-05] MEDS: NSS + 20MEQ KCL 20 MEQ/1,000 ML BAG IV SCH ×2 (08:25→16:56)
[2019-09-05] MEDS: HEPARIN SOD 5,000 UNIT/0.5 ML VIAL SQ SCH ×2 (08:26→20:27)
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
--- NOTE | 2019-09-05 13:41 | Hospitalist Progress Note ---
Date of Service September 05, 2019 Assessment & Plan (1) Squamous cell carcinoma of epiglottis: 78-year-old male with squamous cell carcinoma of the epiglottis on hospice/palliative care, admitted for syncopal event leading to a fall and being found down at home hours later. Syncopal event secondary to dehydration Squamous Cell Carcinoma of Epiglottis: Severe protein calorie malnutrition - patient established with [facility] home hospice - discontinued all labs, and monitoring at this time - patient's POA will be available to pick patient up tomorrow once hospice services have been arranged for patient's home - POLST form completed with palliative care Diet: Regular Code: DNR/DNI Admission and Anticipated Discharge Date Admission Date: September 05, 2019 Supervising Physician Co-Signing Physician Notes Resident Physician Supervision Note: I independently interviewed and examined the patient and verified the beyer history and physical, reviewed labs and image studies, discussed the case with the resident Dr. Dietz and agree with the findings and care plan. Subjective Seen by palliative today, family had discussions with [facility] home hospice for establishment of care but services and family will not be available until tomorrow. Review of Systems Review of Systems: All systems reviewed & are unremarkable except as noted in Subjective Physical Exam Constitutional: WD/WN, vitals as above Eyes: PERRL, conjunctivae normal, anicteric sclerae Neck: normal visual inspection Respiratory: normal respiratory effort, lungs clear to auscultation able to speak in complete sentences; no labored breathing, no retractions, no cough and no audible wheezes Cardiovascular: Rate/Rhythm: regular rate and regular rhythm Heart Sounds: normal S1 and normal S2; no gallop, no murmur and no cardiac rub Vessels: no JVD Extremities: no pedal edema Gastrointestinal (Abdomen): normal bowel sounds, soft, nontender, no hepatosplenomegaly Neurologic: patellar DTR's 2+ bilat, sensation intact Psychiatric: A+Ox3, euthymic affect Results & Data Results & Data ([facility]) Vital Signs (Past 12 Hours) Vital Signs Temp Pulse Resp BP Pulse Ox 09/05/19 07:40 36.8 C 79 18 101/59 L 94 Laboratory Results 09/05/19 09/05/19 Range/Units 06:25 05:45 Sodium 142 (136-145) mmol/L Potassium 4.0 D (3.5-5.1) mmol/L Chloride 111 H (98-107) mmol/L Carbon Dioxide 27 (21-32) mmol/L Anion Gap 4.0 (3-11) BUN 23 H (7-18) mg/dl Creatinine 1.31 D (0.6-1.4) mg/dl Est Cr Clr Drug Dosing 52.2 ml/min Est GFR ( Amer) 59.2 Est GFR (Non-Af Amer) 51.1 BUN/Creatinine Ratio 17.5 (10-20) Glucose 72 (70-99) mg/dl Calcium 8.8 (8.5-10.1) mg/dl Urine Color Yellow Urine Appearance Slightly Cloudy (Clear) Urine pH 5.5 (4.5-7.5) Ur Specific Brady >= 1.030 (1.000-1.030) Urine Protein Negative (Negative) Urine Glucose (UA) Negative (Negative) Urine Ketones Negative (Negative) Urine Blood Trace H (Negative) Urine Nitrite Negative (Negative) Urine Bilirubin Negative (Negative) Urine Urobilinogen Negative (Negative) Ur Leukocyte Esterase Negative (Negative) Urine RBC 0-4 (0-4) /hpf Urine WBC 0-5 (0-5) /hpf Ur Epithelial Cells 0-5 (0-5) /lpf Uric Acid Crystals Present A (None Prsent) Urine Bacteria 1+ H (Negative) Hyaline Casts 0-5 (0-5) /lpf Medications Administered Current Inpatient Medications Acetaminophen (Tylenol) 650 mg PO Q4H PRN PRN Reason: pain/fever Stop: 10/04/19 04:14 Heparin Sodium (Porcine) (Heparin Sodium (Porcine)) 5,000 units SQ Q12 NEVIN Stop: 10/04/19 08:59 Last Admin: 09/05/19 08:26 Dose: Not Given Documented by: Potassium Chloride/Sodium Chloride (Normal Saline W/20 Meq Kcl) 20 meq in 1,000 mls @ 120 mls/hr IV .Q8H20M NEVIN Stop: 10/04/19 04:44 Last Admin: 09/05/19 08:25 Dose: 120 mls/hr Documented by: Magnesium Hydroxide (Milk Of Magnesia) 30 ml PO Q6H PRN PRN Reason: Constipation Stop: 10/04/19 04:14 Morphine Sulfate (Roxanol) 5 mg PO Q4 PRN PRN Reason: Pain Stop: 09/19/19 14:52 Ondansetron HCl (Zofran) 4 mg IV Q6H PRN PRN Reason: Nausea Stop: 10/04/19 04:14 Polyethylene Glycol (Miralax Powder Packet) 17 gm PO DAILY PRN PRN Reason: Constipation Stop: 10/04/19 04:14 Resident Activity Tracking Resident Involvement: Resident Care Provided Care Provided: Adult Hospital Medicine
[2019-09-05] MEDS ORDERED: MoRPHine SULFATE 5 MG/0.25 ML UDP PO PRN (14:53)
[2019-09-06] MEDS: HEPARIN SOD 5,000 UNIT/0.5 ML VIAL SQ SCH (07:53)
--- NOTE | 2019-09-06 11:01 | Discharge Summary ---
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 Patient states that he has no recollection of how or why he fell. He says that he was laying on the floor in his kitchen for approximately 11 hours prior to waking up and being found. He denies any chest pain, shortness of breath. He does attest to dizziness, unsteadiness. He attests to continuing and worsening right shoulder pain. He says that his pain is now also in his pelvis after being on the floor for so long. Principal Diagnosis Syncope Discharge Exam Constitutional WD/WN, vitals as above Eyes PERRL, conjunctivae normal, anicteric sclerae Neck normal visual inspection Respiratory normal respiratory effort, lungs clear to auscultation able to speak in complete sentences; no labored breathing, no retractions, no cough and no audible wheezes Cardiovascular Rate/Rhythm: regular rate and regular rhythm Heart Sounds: normal S1 and normal S2; no gallop, no murmur and no cardiac rub Vessels: no JVD Extremities: no pedal edema Gastrointestinal (Abdomen) normal bowel sounds, soft, nontender, no hepatosplenomegaly Neurologic patellar DTR's 2+ bilat, sensation intact Psychiatric A+Ox3, euthymic affect Discharge Data Allergies Allergy/AdvReac Type Severity Reaction Status Date / Time No Known Allergies Allergy Verified 09/03/19 22:43 Consultations 09/04/19 00:42 ED Decision to Admit Stat 09/04/19 10:29 Consult Palliative Care Routine Ordered Studies 09/03/19 22:01 CT cervical spine wo con Urgent CT head/brain wo con Urgent Hospital Course (1) Squamous cell carcinoma of epiglottis: 78-year-old male with squamous cell carcinoma of the epiglottis on hospice/palliative care, admitted for syncopal event leading to a fall and being found down at home hours later. Syncopal event secondary to dehydration Squamous Cell Carcinoma of Epiglottis: Severe protein calorie malnutrition - patient established with [facility] home hospice - POLST form completed with palliative care; instructed to place in visible place within home for ease of observation of his wishes in the event that emergency services was called to his home - provided with prescription for Roxanol 5mg PO Q4h PRN for pain, and Ativan 1mg PO Q8h PRN for anxiety Total Time Total Time Spent Total Time Spent (In Minutes): 30 Discharge Plan Discharge Items Patient Disposition: Hospice - Home Reason For Visit: SYNCOPE, LUIS ALBERTO Discharge Diagnosis: Metastatic Cancer Activity: Per Instructions section Non-emergency contact: Primary Care Provider Call non-emergency contact if: you have any medication questions Follow-up/Referrals: Durga Mejia III, DALTON [Primary Care Provider] - Diet: Regular Addtl Attending Provider Instructions: You were seen and admitted following a fall while you were at home; during this admission, you expressed your desire to return home and work with the palliative team in order to continue to make sure that you are comfortable going forward. As a result of this, we put you and your family in contact with the Palliative team, and helped complete the process started by your primary care provider. Additionally, you completed a POLST form with the Palliative team that you should post in a visible spot within your home so that your expressed wishes outlined in that form can be respected going forward. Pending Studies at Discharge: No Stand-Alone Forms: My [facility] Medications and DC Order Prescriptions: New morphine concentrate 100 mg/5 mL (20 mg/mL) Solution 5 mg PO Q4 PRN (Reason: pain) Qty: 15 RF: 0 lorazepam 1 mg tablet 1 mg PO TID PRN (Reason: anxiety) Qty: 10 RF: 0 Continued morphine concentrate 100 mg/5 mL (20 mg/mL) solution 0 mg PO Q4H PRN (Reason: Pain) RF: 0 Discharge Orders: Discharge Order (Routine); Ordered 09/06/19 Ordered By: Helder Dietz Admission Data Admit Date/Time: 09/05/19 11:11 Attending Provider: Karena Glass Admit Provider: Cyndee Horta Primary Care Provider: Durga Mejia III Other Providers: Waqas Terrazas ; Faina Maher ; [facility],Home Healthcare Other Interventions: Discharge Summary Assessment (RN) Last Done: 09/06/19 11:09 DC Date/Time DO NOT enter until pt leaves facility: 09/06/19 14:15 Supervising Physician Co-Signing Physician Notes Resident Physician Supervision Note: I independently interviewed and examined the patient and verified the beyer history and physical, reviewed labs and image studies, discussed the case with the resident Dr. Dietz and agree with the findings and care plan. Resident Activity Tracking Resident Involvement: Resident Care Provided Care Provided: Adult Hospital Medicine
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
--- NOTE | 2019-09-12 13:26 | Coding Query ---
CODING QUERY To promote full compliance with coding requirements relating to patient care, provider participation is requested in all cases of coffee sampler uncertainty. Please assist us with the question(s) below: Coding Question(s): The H&P documents Syncope likely secondary to hypovolemia/hypotension with BP on admission of 82/49, improving with hydration and the Supervising Physician documents Syncope - dehydration causing hypotension, the Progress Note on 09/04/19 documents Syncope likely 2/2 hypovolemia/hypotension due to poor oral intake sec to epiglottis cancer, and the Discharge Summary documents Syncopal event secondary to dehydration with no mention of hypotension. Please clarify below, in your clinical opinion, regarding the etiology of Syncope. ( x) Syncope likely due to Dehydration and Hypotension ( ) Syncope likely due to Dehydration ( ) Syncope likely due to Other: Please Specify Physician's Response(s): Thank you Vickie Eden Principal Diagnosis: "that condition established after study, to be chiefly responsible for occasioning the admission of the patient to the hospital for care." Co-Existing Principal Diagnosis: "when two or more diagnoses equally meet the criteria for principal diagnosis as determined by the circumstances of admission, diagnostic work up, and/or therapy provided, and the Alphabetic Index, Tabular List, or another coding guideline does not provide sequencing direction, any one of the diagnoses may be sequenced first." "When the physician has documented what appears to be a current diagnosis in the body of the record, but has not included the diagnosis in the final diagnostic statement, the physician should be asked whether the diagnosis should be added." (Source Coding Clinic 2 QTR90. p3-4) LYSSA
--- NOTE | 2019-10-18 11:30 | Coding Query ---
CODING QUERY To promote full compliance with coding requirements relating to patient care, provider participation is requested in all cases of tree doctor uncertainty. Please assist us with the question(s) below: Coding Question(s): There is documentation on the H&P of, "admission for hypoxia and dehydration with syncopal event, and ? pneumonitis" as well as, "Assessment/Plan - 78yo male with NSCLC and epiglottis SCC presenting with hypoxia, syncope. He is on hospice an dis to be admitted for inpatient hospice at this time -Comfort measures, Morphine, Ativan, supplemental O2 as needed - Zosyn -IVF", and the Discharge Summary also documents, "admission for hypoxia and dehydration with syncopal event, and ? pneumonitis", and documents, " Continue comfort care with regard to home medications (continue liquid morphine, lorazepam), no blood draws, no cardiac monitoring. - Vitals to be measured qshift, to monitor for hypoxia.". It is not clear if this patient was admitted for Comfort Care or if the patient was admitted to treat acute medical conditions including dehydration, hypoxia and ? pneumonitis. Please clarify below, in your clinical opinion. ( ) Admission for Comfort Care ( ) Admission for treatment of acute medical conditions including dehydration, hypoxia and ? pneumonitis ( ) Admission for other: Please Specify Physician's Response(s): Thank you Vickie Eden Principal Diagnosis: "that condition established after study, to be chiefly responsible for occasioning the admission of the patient to the hospital for care." Co-Existing Principal Diagnosis: "when two or more diagnoses equally meet the criteria for principal diagnosis as determined by the circumstances of admission, diagnostic work up, and/or therapy provided, and the Alphabetic Index, Tabular List, or another coding guideline does not provide sequencing direction, any one of the diagnoses may be sequenced first." "When the physician has documented what appears to be a current diagnosis in the body of the record, but has not included the diagnosis in the final diagnostic statement, the physician should be asked whether the diagnosis should be added." (Source [facility] 2 QTR90. p3-4) LYSSA
== END 2019-09-06 14:15 | disposition hospice, home (50) | DRG 682 ==
LOC: ED 20:53 → EDINP 20:53 → SUATTDRO 09-04 02:52 → 2W 09-04 11:32 → 3N 09-05 00:15

== ENCOUNTER 2019-10-03 16:26 | Inpatient (IN) ==
[2019-10-03] MEDS ORDERED: ALBUT/IPRATROP 3MG/0.5MG NEB 3 ML VIAL INH STA (16:36)
[2019-10-03] MEDS ORDERED: SODIUM CHLORIDE 0.9% 500 ML IV ONE (16:36)
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
--- NOTE | 2019-10-03 16:58 | XRay Report ---
XR chest 1V portable HISTORY: 78 years-old Male SOB COMPARISON: Chest radiograph 09/03/2019 TECHNIQUE: Portable AP view of the chest FINDINGS: Right lung volume loss with rightward midline shift. Small to moderate right pleural effusion with pa tchy consolidative and reticular interstitial right lung opacities. Compensatory hyperinflation of th e left lung. No pneumothorax or overt pulmonary edema. Degenerative changes of the shoulders and spin e. Lytic lesion within the right seventh rib is redemonstrated. Cervical spine fusion hardware. IMPRESSION: 1. Chronic postoperative changes of the right lung. Progressive right lung volume loss with interstit ial and consolidative opacities suggestive of progressive fibrosis with possible superimposed pneumon itis. 2. Increased size of a small to moderate right pleural effusion. ACT 112: Negative or not required by law. The above report was generated using voice recognition software. It may contain grammatical, syntax o r spelling errors. Electronically signed by: Tawanda Mosqueda M.D. 10/03/2019 4:56 PM
[2019-10-03 17:40] LABS: Basophils # (auto) 0.01 K/uL (0-0.2); Basophils % (auto) 0.1 %; Eosinophils # (auto) 0.01 K/uL (0-0.5); Eosinophils % (auto) 0.1 %; Hematocrit (blood only) 38.3 % (42-52); Hemoglobin 12.3 g/dL (14.0-18.0); Immature Granulocytes # (auto) 0.05 K/uL (0.00-0.02); Immature Granulocytes % (auto) 0.3 %; Lymphocytes # (auto) 0.63 K/uL (1.2-3.4); Lymphocytes % (auto) 4.1 %; Mean Corpuscular Hemoglobin 31.3 pg (25-34); Mean Corpuscular Hgb Conc 32.1 g/dL (32-36); Mean Corpuscular Volume 97.5 fL (80-100); Mean Platelet Volume 10.2 fL (7.4-10.4); Monocytes # (auto) 0.61 K/uL (0.11-0.59); Neutrophils # (auto) 13.93 K/uL (1.4-6.5); Neutrophils % (auto) 91.4 %; Platelet Count 286 K/uL (130-400); RDW Standard Deviation 53.9 fL (36.4-46.3); Red Blood Count 3.93 M/uL (4.7-6.1); White Blood Count 15.24 K/uL (4.8-10.8)
[2019-10-03] MEDS ORDERED: PIPERACILLIN/TAZOBACTAM 4.5 GM/120 ML BAG IV ONE (17:43)
[2019-10-03] MEDS ORDERED: PIPERACILL/TAZOBAC CONSULT ACTIVE PRN (17:43)
[2019-10-03 17:51] LABS: INR 1.2 (0.9-1.1); Partial Thromboplastin Ratio 0.9; Partial Thromboplastin Time 25.7 Seconds (21.0-31.0); Prothrombin Time 12.4 Seconds (9.0-12.0)
[2019-10-03 18:05] LABS: Albumin Globulin Ratio 0.5 (0.9-2); Albumin Level 2.3 gm/dl (3.4-5.0); BUN Creatinine Ratio 13.3 (10-20); Bilirubin,Total 0.7 mg/dl (0.2-1); Calcium 12.8 mg/dl (8.5-10.1); Creatinine Clr Calc Pharmacy 43.1 ml/min; Est GFR (African American) 50.2; Est GFR (Non-African American) 43.3; Globulin 4.7 gm/dl (2.5-4.0); Magnesium 2.1 mg/dl (1.8-2.4); Troponin I 0.019 ng/ml (0-0.045)
[2019-10-03] MEDS ORDERED: SODIUM CHLORIDE 0.9% 1000ML 500 ML IV ONE (18:20)
[2019-10-03] MEDS ORDERED: MoRPHine SULFATE 10 MG/0.5 ML UDP PO PRN (20:10)
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
[2019-10-03] MEDS: SODIUM CHLORIDE 0.9% 1000ML 1,000 ML IV SCH (20:41)
--- NOTE | 2019-10-03 22:03 | Billing Data ---
Date of Service October 03, 2019 Coding Level of Care Code 20415 Initial Inpt Care Lvl 2
[2019-10-03] MEDS ORDERED: ONDANSETRON 4 MG OD TAB SL PRN (22:20)
[2019-10-03] MEDS ORDERED: ONDANSETRON INJ 2 MG/ML 2 ML VIAL IV PRN (22:20)
[2019-10-03] MEDS ORDERED: MoRPHine SULFATE 5 MG/0.25 ML UDP PO PRN (22:31)
[2019-10-03] MEDS ORDERED: LORazepam 1 MG TAB PO PRN (22:32)
[2019-10-03] MEDS: PIPERACILLIN/TAZOBACTAM 3.375 GM in DEXTROSE 5% 100 ML IV SCH (23:48)
[2019-10-04] MEDS ORDERED: MoRPHine SULFATE 2 MG/ML CARP IV PRN ×2 (01:56→17:40)
[2019-10-04] MEDS ORDERED: ATROPINE SULFATE 1% OP SOLN 5 ML BTL SL PRN (01:56)
[2019-10-04] MEDS ORDERED: LORazepam 1 MG/2 ML VIAL IV PRN (01:56)
[2019-10-04] MEDS: SODIUM CHLORIDE 0.9% 1000ML 1,000 ML IV SCH ×2 (04:51→13:36)
--- NOTE | 2019-10-04 08:37 | Electrocardiogram Report ---
Test Reason : Blood Pressure : / mmHG Vent. Rate : 108 BPM Atrial Rate : 108 BPM P-R Int : 160 ms QRS Dur : 090 ms QT Int : 326 ms P-R-T Axes : 054 -42 074 degrees QTc Int : 436 ms Sinus tachycardia Left axis deviation Abnormal ECG When compared with ECG of 03-SEP-2019 22:25, Premature atrial complexes are no longer Present QRS axis Shifted left Confirmed by Cipriano Hairston ([id number]) on 10/04/2019 8:37:21 AM Referred By: REFERRED SELF Confirmed By:Cipriano Hairston
[2019-10-04] MEDS: PIPERACILLIN/TAZOBACTAM 3.375 GM in DEXTROSE 5% 100 ML IV SCH (10:42)
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
[2019-10-04] MEDS ORDERED: MoRPHine SULFATE 2 MG/ML CARP ONE (17:19)
--- NOTE | 2019-10-10 23:52 | Discharge Summary ---
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 Brother present during interview as patient could not hear well due to earplugs in his ears and "wanted to rest". Per patient's brother over the last several days Mr. Romero has had several falls due to feeling profoundly weak and short of breath. He called EMS today as he had fallen and could not get up. On their arrival as they attempted to lift him he had a syncopal event and had BP with 60s systolic as well as hypoxia. In ED patient found to be hypoxic despite nonrebreather to the low 70s and placed on HFNC with flow 40. Labwork showed leukocytosis, elevated lactate, elevated creatinine, hypercalcemia. CXR showed worsening fibrosis of his lung vs. pneumonitis, as well as worsening pleural effusion. Hospitalist service consulted for admission, with intention to provide comfort care services for home. Patient's decision maker in the event of compromise is his brother Bill. On my interview patient is able to relay that while he still has some shortness of breath, he feels closer to how short of breath he normally feels at home since starting the HFNC. No recent fevers or chills, no chest pain, no constipation or diarrhea, no nausea or vomiting. Principal Diagnosis Met. 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 pneumonitis. 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 - At home normally performs all ADLs however due to hypoxia and weakness has been unable to do so. - With poor oral intake due to difficulty swallowing; at home full liquid diet with meal replacement shakes. Will continue while admitted. - Will start NSS @125cc/hr given dehydration which likely contributed to significant hypotension prior to arrival. BP normotensive at this time. - Continue comfort care with regard to home medications (continue liquid morphine, lorazepam), no blood draws, no cardiac monitoring. - Vitals to be measured qshift, to monitor for hypoxia. - Titrate oxygen as needed for comfort. - Consult to palliative care placed. Patient decided to go on Comfort measures. Patient on 10/04/19 on 17:27. 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: (9) Non-small cell lung cancer: (10) Nicotine dependence: (11) Hypertension: (12) Hypercholesterolemia: (13) Elevated serum creatinine: Total Time Total Time Spent Total Time Spent (In Minutes): 15 Total Time Includes: Examination of the Patient Discharge Plan Discharge Items Patient Disposition: Reason For Visit: PNEUMONITIS,HYPOXIA Discharge Diagnosis: pneumonitis Condition on Discharge: Serious Follow-up/Referrals: Durga Mejia III, CRNP [Primary Care Provider] - Shaynetl Attending Provider Instructions: dsicharged to be admitted under hospice Stand-Alone Forms: [facility] Admission Data Admit Date/Time: 10/03/19 20:10 Other DC Date/Time DO NOT enter until pt leaves facility: 10/04/19 19:01 Coding Level of Care Code D/C Day Management <30 mins Diagnoses Acute dehydration E86.0 Hypotension I95.9 Hypotension type: unspecified hypotension type Syncope R55 Syncope type: unspecified Hypoxia R09.02 Pneumonia J18.9 Laterality: right Lung location: unspecified part of lung Pneumonia type: due to unspecified organism Goals of care, counseling/discussion Z71.89 Squamous cell carcinoma of epiglottis C32.1 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
--- NOTE | 2019-10-10 23:53 | Death Pronouncement Note ---
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 Patient had had multiple falls over the past several days. Patient was hospitalized from 09/04 to 09/05 for being found down - down for approx 11 hrs per pt. Pt was found by his brother who checks on him. Patient was discharged home under hospice care on 09/05. Patient lives alone, he has a brother and [id number] who assist with his care. Patient is fiercely independent. Patient did not want oxygen in the home as he continues to smoke and did not want "to blow himself up". 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 On admission, he was hypotensive 97/60, EMS initially reported blood pressure 60/ palpable. An EKG showed sinus tachycardia. Palliative Care was consulted to discuss goals of care and evaluate for inpatient, GIP hospice status. After paliative care consult, patient was transitioned to comfort measures. Additional Data Confirmation of : no pulse, no respirations, no heart sounds and pupils fixed and dilated Family: contacted Attending/PCP notified?: Yes Attending physician: Tip Olmos Was code activated?: No Autopsy requested?: No gun examiner notified?: No Advance directives: Yes Coding Level of Care Code D/C Day Management <30 mins Diagnoses Acute dehydration E86.0 Hypotension I95.9 Hypotension type: unspecified hypotension type Syncope R55 Syncope type: unspecified Hypoxia R09.02 Pneumonia J18.9 Laterality: right Lung location: unspecified part of lung Pneumonia type: due to unspecified organism Goals of care, counseling/discussion Z71.89 Squamous cell carcinoma of epiglottis C32.1 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
--- NOTE | 2019-10-19 05:58 | Coding Query ---
CODING QUERY To promote full compliance with coding requirements relating to patient care, provider participation is requested in all cases of policy checker uncertainty. Please assist us with the question(s) below: Coding Question(s): There is documentation on the H&P of, "admission for hypoxia and dehydration with syncopal event, and ? pneumonitis" as well as, "Assessment/Plan - 78yo male with NSCLC and epiglottis SCC presenting with hypoxia, syncope. He is on hospice an dis to be admitted for inpatient hospice at this time -Comfort measures, Morphine, Ativan, supplemental O2 as needed - Zosyn -IVF", and the Discharge Summary also documents, "admission for hypoxia and dehydration with syncopal event, and ? pneumonitis", and documents, " Continue comfort care with regard to home medications (continue liquid morphine, lorazepam), no blood draws, no cardiac monitoring. - Vitals to be measured qshift, to monitor for hypoxia.". It is not clear if this patient was admitted for Comfort Care or if the patient was admitted to treat acute medical conditions including dehydration, hypoxia and ? pneumonitis. Please clarify below, in your clinical opinion. ( x ) Admission for Comfort Care ( ) Admission for treatment of acute medical conditions including dehydration, hypoxia and ? pneumonitis ( ) Admission for other: Please Specify Physician's Response(s): Thank you Vickie Eden Principal Diagnosis: "that condition established after study, to be chiefly responsible for occasioning the admission of the patient to the hospital for care." Co-Existing Principal Diagnosis: "when two or more diagnoses equally meet the criteria for principal diagnosis as determined by the circumstances of admission, diagnostic work up, and/or therapy provided, and the Alphabetic Index, Tabular List, or another coding guideline does not provide sequencing direction, any one of the diagnoses may be sequenced first." "When the physician has documented what appears to be a current diagnosis in the body of the record, but has not included the diagnosis in the final diagnostic statement, the physician should be asked whether the diagnosis should be added." (Source Coding [facility] 2 QTR90. p3-4) LYSSA
== END 2019-10-04 19:01 | disposition expired | DRG 951 ==
LOC: ED 16:26 → 2N 20:10 → SUATTDRO 20:10 → 2N 21:29 → 3E 10-04 00:34 → 3N 10-04 03:21 → UNDODISIN 10-04 16:52